=== PATIENT | male | born 1960 | race Caucasian/White ===

== ENCOUNTER 2019-10-15 16:50 | Outpatient (CLI) | payer OTHER, SELFPAY ==
--- NOTE | ~2019-10-15 | XR_ITS ---
EXAMINATION: XR foot LT 2V, XR ankle LT 2V DATE: 10/15/2019 17:34 INDICATION: Left foot and ankle pain and swelling TECHNIQUE: 1. Anteroposterior and lateral view of the left ankle were obtained. 2. Dorsoplantar and lateral views of the left foot were obtained. COMPARISON: None. FINDINGS: Alignment of the foot and ankle is normal. No fracture or osteochondral lesion. Mild osteoarthritis a t the first metatarsophalangeal joint. Remaining joint spaces are normal. No cortical erosions or per iosteal reaction. No suspicious lytic or blastic bone lesions. Moderate-sized plantar calcaneal spur. No ankle joint effusion. Soft tissue nodule lateral to the mid fifth metatarsal which measure proxim al 1.5 cm in length. IMPRESSION: 1. No acute osseous abnormality. 2. Indeterminate 1.5 cm soft tissue nodule along the lateral margin of the forefoot. Reviewed, dictated and finalized at location A. PER IMPRESSION: 1. No acute osseous abnormality. 2. Indeterminate 1.5 cm soft tissue nodule along the lateral margin of the fore foot.
[2019-10-15 17:15] LABS: Basophils Absolute Auto 0.03 K/mm3 (0.00-0.10); Basophils Percent Auto 0.7 % (0.0-1.0); Eosinophils Absolute Auto 0.04 K/mm3 (0.02-0.50); Eosinophils Percent Auto 0.9 % (1.0-6.0); Hematocrit 37.4 % (40.0-54.0); Hemoglobin 12.9 g/dL (14.0-18.0); Immature Granulocyte Absolute 0.05 K/mm3 (0.00-0.00); Immature Granulocyte Percent A 1.1 % (0.0-0.0); Immature Platelet Fraction Pct 1.7 % (1.0-7.0); Lymphocytes Absolute Auto 1.44 K/mm3 (1.10-4.50); Lymphocytes Percent Auto 32.2 % (18.0-42.0); Mean Corpuscular HGB Conc 34.5 g/dL (32.0-36.0); Mean Corpuscular Hemoglobin 30.9 pg (27.0-31.0); Mean Corpuscular Volume 89.7 fL (78.0-102.0); Mean Platelet Volume 9.7 fl (8.7-11.0); Monocytes Absolute Auto 0.55 K/mm3 (0.10-0.90); Monocytes Percent Auto 12.3 % (2.0-11.0); Neutrophils Absolute Auto 2.4 K/mm3 (1.7-7.2); Neutrophils Percent Auto 52.8 % (50.0-70.0); Platelet Count Result 135 K/mm3 (150-420); Red Blood Count 4.17 M/mm3 (4.70-6.10); Red Cell Distribution Width 16.5 % (11.6-14.4); White Blood Count 4.5 K/mm3 (4.8-10.8)
[2019-10-15 17:30] LABS: Anion Gap 13.8 mmol/L (7-16); Blood Urea Nitrogen 17 mg/dL (7-18); CRP 1.4 mg/dL (0.0-0.9); Calcium 8.8 mg/dL (8.5-10.1); Carbon Dioxide 26 mmol/L (21-32); Chloride 102 mmol/L (98-108); Estimated Glomerular Filt Rate > 60; Glucose 92 mg/dL (70-99); Osmolality Calculated 287 mOsm/kg (285-295); Potassium 3.8 mmol/L (3.5-5.1); Sodium 138 mmol/L (136-145)
[2019-10-15 18:29] LABS: Erythrocyte Sedimentation Rate 46 mm/hr (0-20)
== END 2019-10-15 16:51 | disposition home or self-care (01) ==
LOC: CHSLAB 16:52
PROVIDERS: PCP Internal Medicine; Visit Provider Internal Medicine
DX: M25.572 Pain in left ankle and joints of left foot (principal); M79.672 Pain in left foot; M25.472 Effusion, left ankle
CPT/HCPCS: 36415; 73600; 73620; 80048; 84550; 85025; 85055; 85652; 86140

== ENCOUNTER 2019-11-18 06:25 | Day surgery (SDC) | payer OTHER, SELFPAY | END 2019-11-18 08:25 | disposition home or self-care (01) | PROVIDERS: PCP Internal Medicine; Visit Provider Surgery | DX: Z12.11 Encounter for screening for malignant neoplasm of colon (principal); Z85.048 Personal history of other malignant neoplasm of rectum, rectosigmoid junction, and anus; K63.5 Polyp of colon | CPT/HCPCS: 45384; 812; 88305; J2704; J7120 ==

== ENCOUNTER 2019-12-21 09:32 | Outpatient (CLI) | payer OTHER, SELFPAY ==
--- NOTE | ~2019-12-21 | CT_ITS ---
EXAMINATION: CT abdomen pelvis w con INDICATION: Rectal cancer TECHNIQUE: Computed tomographic images of the abdomen and pelvis were obtained after the administrati on of 100 cc of Omnipaque 350 intravenous contrast. The dose-length product (DLP) was 494.43 mGy-cm. Automated exposure control and iterative reconstruction technique were employed. COMPARISON: 05/12/2019 FINDINGS: The lung bases are clear. The heart size is normal. There is a 5 mm cyst of the liver. The spleen,, gallbladder, and adrenal glands are normal. A punctate calcification of the pancreas likely reflects prior pancreatitis. The adrenal glands and kidneys are unremarkable. There is calcified athe rosclerosis of the aorta and many of the other arteries. No pathologically enlarged abdominal or pelv ic lymph nodes are identified. There has been interval resection of the previously described rectal m ass. No definite persistent wall thickening is identified although the bowel is nondistended just pro ximal to the anastomosis. There is no free intraperitoneal gas or evidence of bowel obstruction. Ther e are fat-containing inguinal hernias, right greater than left. There is moderate lumbar spondylosis. IMPRESSION: 1. Interval rectal mass resection without evidence of metastatic disease. Reviewed, dictated and finalized at location B.
== END 2019-12-21 09:33 | disposition home or self-care (01) ==
PROVIDERS: PCP Internal Medicine; Visit Provider Internal Medicine Hematology & Oncology
DX: C20 Malignant neoplasm of rectum (principal); Z98.890 Other specified postprocedural states
CPT/HCPCS: 74177; Q9967

== ENCOUNTER 2020-06-07 17:03 | Outpatient (CLI) | payer OTHER, SELFPAY ==
--- NOTE | ~2020-06-07 | XR_ITS ---
EXAMINATION: XR chest 2V DATE: 06/07/2020 17:24 INDICATION: COPD. Dyspnea. TECHNIQUE: frontal and lateral views of the chest were obtained. COMPARISON: Chest radiograph dated 06/22/2019 FINDINGS: Right internal jugular central venous port catheter with distal tip at the caudal superior vena cava. The lungs remain clear with no focal airspace opacities, pulmonary edema, pleural effusion or pneumo thorax. The cardiomediastinal silhouette is normal. Visualized bones and soft tissues are unremarkabl e. IMPRESSION: 1. No acute cardiopulmonary disease. Reviewed, dictated and finalized at location A.
== END 2020-06-07 17:04 | disposition home or self-care (01) ==
LOC: CHSIMG 17:05
PROVIDERS: PCP Internal Medicine; Visit Provider Internal Medicine
DX: J44.9 Chronic obstructive pulmonary disease, unspecified (principal)
CPT/HCPCS: 71046

== ENCOUNTER 2020-12-13 13:07 | Outpatient (CLI) | payer OTHER, SELFPAY ==
--- NOTE | ~2020-12-13 | CT_ITS ---
EXAMINATION: CT abdomen pelvis w con INDICATION: Rectal cancer TECHNIQUE: Computed tomographic images of the abdomen and pelvis were obtained after the administrati on of 100 cc of Omnipaque 350 intravenous contrast. The dose-length product (DLP) was 519.57 mGy-cm. Automated exposure control and iterative reconstruction technique were employed. COMPARISON: 12/21/2019 FINDINGS: The lung bases are clear. The heart size is normal. There is a stable 5 mm cyst of the othe rwise normal liver. The spleen, gallbladder, and adrenal glands are normal. The kidneys are unremarka ble. A punctate calcification in the body of the pancreas likely reflects prior pancreatitis. There i s calcified atherosclerosis of the aorta and many of the other arteries. No pathologically enlarged a bdominal or pelvic lymph nodes are identified. There is no free intraperitoneal gas or evidence of henry wel obstruction. Surgical changes are noted in the rectum. There is moderate lumbar spondylosis. Fat- containing inguinal hernias are again noted. The appendix is normal. IMPRESSION: 1. No evidence of metastatic disease. Reviewed, dictated and finalized at location A.
[2020-12-13 14:01] LABS: Estimated Glomerular Filt Rate > 60
== END 2020-12-13 13:08 | disposition home or self-care (01) ==
PROVIDERS: PCP Internal Medicine; Visit Provider Internal Medicine Hematology & Oncology
DX: C20 Malignant neoplasm of rectum (principal)
CPT/HCPCS: 36415; 74177; 80053; 82378; 85025; Q9967

== ENCOUNTER 2021-11-22 02:55 | Day surgery (SDC) | payer MEDICARE, OTHER, SELFPAY ==
[2021-11-15 15:43] VITALS: BMI 29.9
--- NOTE | 2021-11-15 16:06 | PC.NURSE ---
Report to the Outpatient Waiting Room, entrance under the green pavilion located off [facility], at time 1130_ on date11/22/21. OR Time: 1330. - You and your visitor will be asked a series of questions to screen for COVID 19 for your protection. - A mask is required within the hospital. Preoperative COVID Testing Requirements: No COVID Test needed if: (proof is required; if not received patient will have Rapid Test prior to entry) - Patient has received COVID Vaccine at least 14 days prior to procedure date or - Patient has positive COVID test result within last 90 days of surgery date. COVID Test needed if above criteria is not met If not COVID vaccinated a COVID test must be conducted within 72 hours of surgery and patient is asked to isolate self from time of testing until procedure. You will go to the [facility] for your COVID testing. The [facility] Testing site is located at the corner of [address] [facility]. You will only be called if COVID results are positive and your surgeon may reschedule your elective surgery date. Patients may have clear liquids (water, carbonated beverages, clear teas, apple juice) until 3 hours prior to surgery with a maximum of 20 ounces. - No food from midnight until time of surgery - Infants may have breast milk until 4 hours before surgery, formula 6 hours prior to surgery. - Children will be allowed to drink immediately following surgery. If applicable, please bring a bottle or sippy cup to assist with drinking. Juice, water, soda, and popsicles are readily available. For infants on formula, please bring formula the day of surgery. Pacifiers are allowed. Take the following medications with a SIP of water the morning of surgery:n/a Medications to discontinue per physician none Date to take last dose Please no make-up, nail tunisian, hairspray, perfume, deodorant, or body powder the day of surgery. No jewelry (including any body piercings) or valuables the day of surgery, leave them at home. Please take a shower or bath the night before, or the morning of, surgery with an antibacterial soap. Wear comfortable, loose fitting clothing. Children are encouraged to wear pajamas. - Jewelry must be removed prior to entering the operating room. Rings and piercings that are not removed may be cut off. - The hospital will not accept responsibility for valuables. - Please leave all valuables, including medications, at home the day of surgery. If you are going home after surgery, a licensed dray driver must drive you home. - NO public transportation without another adult. - We recommend that an adult stay with you for 24 hours following discharge. - We also recommend that you do not drive, make important decision, drink alcoholic beverages, or take any drugs that were not prescribed by your health care provider for at least 24 hours after your discharge time. For Pediatric surgeries, we recommend two adults accompany the child home (only one inside the building at this time). One visitor will be allowed to accompany the patient into the hospital. Patients visitor will be instructed to remain with patient at all times or leave the building. We will allow the visitor to come back to the postoperative area when patient is ready. Follow any additional instructions given to you from your surgeon. Telephone instructions given to Sd Munoz and asked if any additional questions and then verbalized understanding. Patient advised to call surgeon office or pre surgery nurse liaison [phone] if any additional questions.
[2021-11-22 11:40] VITALS: BP 127/75; PULSE 75; RESP 18; TEMP 36.8; O2SAT 98
[2021-11-22] MEDS: LACTATED RINGERS 1,000 ML 30 ML IV CONT (12:07)
--- NOTE | 2021-11-22 12:11 | PM.IMHP ---
H&P: HPI History of Present Illness Date/Time: 11/22/21 12:11 Pt is a 61 y/o M s/p LAR and adjuvant chemotx for rectal cancer. Pt had RIJ port placed in 06/26 for chemo access. Pt reports no issues c port but hasn't had use in quite a while. Pt here for removal. Chief Complaint: rectal cancer Review of Systems Review of Systems: All systems reviewed & are unremarkable except as noted in HPI and below PMFSH Past Medical History Medical History Port-A-Cath in place Rectal cancer Family History Family History Sibling Family history of multiple sclerosis Hypertension Father Hypertension Family history of cardiovascular disease Cerebrovascular accident Other Carcinoma of colon Social History Social History Smoking packs per day: 1 Smoking cigarettes per day: 20.0 Years smoked: 40 Smoking pack-years: 40.00 Smoking status: Former smoker Tobacco type: cigarettes Smoking end date: 09/08/13 Alcohol intake: current Substance use: current Substance use type: marijuana and prescription drug Last use: 11/14/21 Living arrangements: alone Spiritual care concerns: No Meds Home Medications and Allergies Home Medications Medication Instructions Recorded Confirmed Type amlodipine 5 mg PO DAILY 11/15/21 11/22/21 History atorvastatin 20 mg PO DAILY 11/15/21 11/22/21 History Allergies Allergy/AdvReac Type Severity Reaction Status Date / Time No Known Allergies Allergy Verified 11/22/21 11:46 Vital Signs Vital Signs - 24 hr 11/22/21 11:40 Temperature 36.8 C Pulse Rate 75 Respiratory Rate 18 Blood Pressure 127/75 Pulse Oximetry 98 Exam Const: General: cooperative, comfortable and no acute distress Chest: Chest palpation & inspection: normal inspection of the chest Other: RIJ port - C/D/I Resp: Effort & Inspection: normal respiratory effort Auscultation: clear to auscultation bilaterally Cardio: Rate: regular rate Rhythm: regular rhythm GI: Inspection: normal to inspection GI Palp: Yes Soft to palpation Assessment and Plan Assessment and plan (1) Rectal cancer: Code(s): C20 - Malignant neoplasm of rectum Status: Chronic Assessment and Plan: s/p adjuvant tx, here for VAD removal
--- NOTE | 2021-11-22 12:14 | WPDHPUPDATE1 ---
History and Physical Update Update Date/Time: 11/22/21 12:14 History and Physical has been reviewed, including an updated exam of the patient. There are NO changes in the patient's condition. Risks, benefits, and alternatives have been discussed and questions answered. Patient agrees to proceed with procedure.
--- NOTE | 2021-11-22 13:14 | P.PNAN_ITS ---
Anes - Initial Pre Proc Eval Procedure: Operation Date: 11/22/21 13:30 Proposed Procedures p Removal of Valentin Cath - Tammy Davis MD Date/Time: 11/22/21 13:14 Surgeon: Tammy Davis MD Pre Op Diagnosis: rectal cancer Patient Data Age: 61 Gender: M Height: 1.68 m Weight: 84.2 kg Last Vital Signs Temp 36.8 C 11/22/21 11:40 Pulse 75 11/22/21 11:40 Resp 18 11/22/21 11:40 BP 127/75 11/22/21 11:40 Pulse Ox 98 11/22/21 11:40 Allergies Allergy/AdvReac Type Severity Reaction Status Date / Time No Known Allergies Allergy Verified 11/22/21 11:46 Home Medications Medication Instructions Recorded Confirmed Type amlodipine 5 mg PO DAILY 11/15/21 11/22/21 History atorvastatin 20 mg PO DAILY 11/15/21 11/22/21 History Patient hx anesthesia problems: none Family hx anesthesia problems: none Results Review: All pre-operative results and documents have been reviewed as part of the pre-operative evaluation. [facility] Past Medical History Medical History (Updated 11/22/21 @ 13:15 by Mayito Adkins MD) COPD (chronic obstructive pulmonary disease) HTN (hypertension) Hyperlipidemia Obesity Port-A-Cath in place Rectal cancer Surgical History Surgical History (Updated 11/22/21 @ 13:14 by Mayito Adkins MD) H/O colectomy Family History Family History Sibling Family history of multiple sclerosis Hypertension Father Hypertension Family history of cardiovascular disease Cerebrovascular accident Other Carcinoma of colon Social History Social History Smoking packs per day: 1 Smoking cigarettes per day: 20.0 Years smoked: 40 Smoking pack-years: 40.00 Smoking status: Former smoker Tobacco type: cigarettes Smoking end date: 09/08/13 Alcohol intake: current Substance use: current Substance use type: marijuana and prescription drug Last use: 11/14/21 Living arrangements: alone Spiritual care concerns: No Anes - Eval Final PreProcedure Day of Procedure 11/22/21 13:14 Patient weight: obese Heart: regular rate and rhythm Lungs: clear to auscultation Airway: Mallampati scale class II and special considerations poor dentition Neurological: alert and oriented Last oral intake: >/= 8 hours ASA classification: III Emergent: no Anesthetic plan: proceed Anesthesia type and monitoring: general GIVS and standard monitoring Results Review: All pre-operative results and documents have been reviewed as part of the pre-operative evaluation. Informed Consent: The patient's anesthetic plan and its attendant risks and benefits were discussed with the patient/family/POA. Questions were solicited and answers provided to the satisfaction of the patient/family/POA.
[2021-11-22] MEDS: ceFAZolin 2 GM/D5W 50 ML 2 GM/50 ML BAG IVPB (13:30)
[2021-11-22] MEDS: BUPIVACAINE/EPINEPHRINE 0.25% 10 ML VIAL 20 ML INFILTRATE (13:30)
--- NOTE | 2021-11-22 14:00 | P.OP_ITS ---
Procedure Note - Detailed Date of Procedure 11/22/21 Pre-op Diagnosis rectal cancer s/p adjuvant chemotherapy Post-op Diagnosis Same Procedure Performed removal right chest VAD Surgeon Tammy Davis MD Anesthesia MAC and Local Indications 61 y/o M s/p adjuvant chemotherapy for rectal cancer now need VAD removal Findings RIJ VAD removed in full Description of Procedure The patient was taken to the operating room and placed in the supine position. The patient was then prepped and draped in the normal sterile fashion. A time- out was then done to verify the patient's identity, as well as the procedure being performed. I began by localizing the area of the previously placed port in the right chest. After the area was adequately anesthetized, I made an incision through the previous incision to gain access to the port in the subcutaneous tissue. I was then able to identify the port and using dissection with the Bovie cautery, I was able to free the reservoir from the subcutaneous pocket. The reservoir was being held in by 2 sutures and these were subsequently cut. I was then able to remove the reservoir from the pocket. I then removed the catheter from the right internal jugular vein in full. I then held pressure at the level the right internal jugular vein for approximately 5 minutes. Hemostasis was noted and I irrigated the pocket. I then closed the subcutaneous tissue with 3-0 Vicryl suture. The skin was closed with 4-0 Monocryl subcuticular suture. Dermabond was placed on the wound. The patient tolerated the procedure well and was alert and awake in the operating room postoperative. The patient will be sent to the recovery room in stable condition. Estimated Blood Loss 5 Drains No Packing No Pathology None sent Complications No immediate complications Condition Stable Disposition PACU
[2021-11-22 14:02] VITALS: BP 124/69; PULSE 76; RESP 12; O2SAT 95
[2021-11-22 14:30] VITALS: BP 137/77; PULSE 66; RESP 12; O2SAT 94
[2021-11-22 14:45] VITALS: BP 131/72; PULSE 64; RESP 12
== END 2021-11-22 14:58 | disposition home or self-care (01) ==
PROVIDERS: PCP Internal Medicine; Visit Provider Surgery
PROC: (CPT 36589; principal; 2021-11-22 13:30)
DX: Z45.2 Encounter for adjustment and management of vascular access device (principal); Z85.048 Personal history of other malignant neoplasm of rectum, rectosigmoid junction, and anus; Z92.21 Personal history of antineoplastic chemotherapy; F12.90 Cannabis use, unspecified, uncomplicated; I10 Essential (primary) hypertension; E78.5 Hyperlipidemia, unspecified; J44.9 Chronic obstructive pulmonary disease, unspecified; E66.9 Obesity, unspecified; Z68.30 Body mass index [BMI] 30.0-30.9, adult; Z90.49 Acquired absence of other specified parts of digestive tract; Z87.891 Personal history of nicotine dependence
CPT/HCPCS: 36590; J0690; J2250; J2405; J2704; J3010; J7120

== ENCOUNTER 2022-04-12 09:05 | Outpatient (CLI) | payer MEDICARE, OTHER, SELFPAY ==
--- NOTE | ~2022-04-12 | CT_ITS ---
EXAMINATION: CT abdomen pelvis w con DATE: 04/12/2022 09:47 INDICATION: Rectal cancer restaging TECHNIQUE: Computed tomography (CT) of the abdomen and pelvis was performed with 100 CC Omnipaque 350 intravenous contrast. Automated exposure control and iterative reconstruction technique were employe d. Exam dose: 754.13 mGy-cm total exam DLP. COMPARISON: 12/13/2020 CT abdomen pelvis FINDINGS: The lung bases are clear. Normal heart size. No pericardial or pleural effusion. Diffuse hepatic steatosis with minimal sparing around the gallbladder. No hepatic space-occupying mas s lesion. No gallbladder wall thickening or pericholecystic fluid or fat stranding. No bile duct or p ancreatic duct dilatation. No pancreatic mass lesion. One or 2 pancreatic calcifications suggest mild chronic pancreatitis. Normal morphology of the adrenal glands. Approximately 4.6 mm right renal cyst. No other urinary tract mass lesion or urinary tract calculus o r hydroureteronephrosis. Mild prostate enlargement and calcification. There is atherosclerotic calcification and plaque formation of the abdominal aorta but no aneurysm. N o intraperitoneal or retroperitoneal or pelvic mass lesion or adenopathy or ascites. Normal appendix. Small bilateral fat-containing inguinal hernias. Very small fat-containing umbilical hernia. No suspicious osteolytic or osteoblastic lesions. IMPRESSION: No recurrent or metastatic rectal cancer is evident Hepatic steatosis Mild chronic pancreatitis Normal appendix Reviewed, dictated and finalized at Location A. Reviewed, dictated and finalized at location B.
[2022-04-12 09:29] LABS: Estimated Glomerular Filt Rate > 60
== END 2022-04-12 09:06 | disposition home or self-care (01) ==
PROVIDERS: PCP Internal Medicine; Visit Provider Internal Medicine Hematology & Oncology
DX: C20 Malignant neoplasm of rectum (principal); K76.0 Fatty (change of) liver, not elsewhere classified; K86.1 Other chronic pancreatitis
CPT/HCPCS: 36415; 74177; 80053; 82378; 85025; Q9967

== ENCOUNTER 2022-10-31 10:02 | Outpatient (CLI) | payer MEDICARE, SELFPAY ==
--- NOTE | ~2022-10-31 | CT_ITS ---
CT Abdomen and Pelvis with contrast. History: Rectal cancer. Spiral CT of the abdomen and pelvis was performed after the administration of intravenous contrast. 1 00 cc of Omnipaque 350 was administered intravenously without complication. Dose reduction technique was used on this scan by utilizing automated exposure control and iterative reconstruction technique. The dose-length product (DLP) was 651.79 mGy-cm. COMPARISON: 04/12/2022 Findings: Scans through the lung bases demonstrate mild atelectatic change. There is a 4 mm hypodensity at the anterior margin of liver, too small to accurately characterize (ax ial image 47). The spleen, pancreas, gallbladder, adrenals and kidneys are within normal limits. No evidence of aortic aneurysm. No lymphadenopathy is seen. There is no evidence of bowel obstruction. There is no evidence to suggest acute appendicitis or dive rticulitis. Distal rectal anastomosis noted. Images through the pelvis were performed. Urinary bladder unremarkable. Prostate gland and seminal ve sicles are unremarkable. No ascites is seen. Impression: 4 mm hypodensity in the anterior liver, too small to accurately characterize. Follow-up exam advised. No other significant findings. Reviewed, dictated and finalized at location . D WELFARE ASSISTANT Impression: 4 mm hypodensity in the anterior liver, too small to accurately characterize. F ollow-up exam advised. No other significant findings.
== END 2022-10-31 10:03 | disposition home or self-care (01) ==
PROVIDERS: PCP Internal Medicine; Visit Provider Internal Medicine Hematology & Oncology
DX: C20 Malignant neoplasm of rectum (principal); R93.2 Abnormal findings on diagnostic imaging of liver and biliary tract
CPT/HCPCS: 74177; Q9967

== ENCOUNTER 2022-11-19 00:17 | Day surgery (SDC) | payer MEDICARE, SELFPAY ==
[2022-11-06 15:03] VITALS: BMI 28.4
[2022-11-19 11:12] VITALS: BP 142/80; PULSE 66; RESP 18; TEMP 36.4; O2SAT 97
[2022-11-19] MEDS: LACTATED RINGERS 1,000 ML 150 ML IV CONT (11:36)
--- NOTE | 2022-11-19 11:51 | P.PNAN_ITS ---
Anes - Initial Pre Proc Eval Procedure: Operation Date: 11/19/22 12:30 Proposed Procedures p Colonoscopy - Adrian Osuna MD Date/Time: 11/19/22 11:51 Surgeon: Adrian Osuna MD Pre Op Diagnosis: Rectal CA Patient Data Age: 62 Gender: M Height: 1.68 m Weight: 79.1 kg Last Vital Signs Temp 97.6 F 11/19/22 11:12 Pulse 66 11/19/22 11:12 Resp 18 11/19/22 11:12 BP 142/80 H 11/19/22 11:12 Pulse Ox 97 11/19/22 11:12 O2 Del Method Room Air 11/19/22 11:12 Allergies Allergy/AdvReac Type Severity Reaction Status Date / Time No Known Allergies Allergy Verified 11/19/22 11:11 Home Medications Medication Instructions Recorded Confirmed Type amlodipine 5 mg tablet 5 mg PO DAILY 11/15/21 11/06/22 History atorvastatin 20 mg tablet 20 mg PO DAILY 11/15/21 11/06/22 History Patient hx anesthesia problems: none Family hx anesthesia problems: none Results Review: All pre-operative results and documents have been reviewed as part of the pre- operative evaluation. [facility] Past Medical History Medical History (Updated 11/22/21 @ 13:15 by Mayito Adkins MD) COPD (chronic obstructive pulmonary disease) HTN (hypertension) Hyperlipidemia Obesity Port-A-Cath in place Rectal cancer Surgical History Surgical History (Updated 11/22/21 @ 13:14 by Mayito Adkins MD) H/O colectomy Family History Family History Sibling Family history of multiple sclerosis Hypertension Father Hypertension Family history of cardiovascular disease Cerebrovascular accident Other Carcinoma of colon Social History Social History Smoking packs per day: 1 Smoking cigarettes per day: 20.0 Years smoked: 40 Smoking pack-years: 40.00 Smoking status: Former smoker Tobacco type: cigarettes Smoking end date: 09/08/13 Alcohol intake: current Substance use: current Substance use type: marijuana and prescription drug Last use: 11/14/21 Living arrangements: alone Spiritual care concerns: No Anes - Eval Final PreProcedure Day of Procedure 11/19/22 11:51 Patient weight: normal Heart: regular rate and rhythm Lungs: clear to auscultation Airway: Mallampati scale class II Neurological: alert and oriented Last oral intake: >/= 8 hours ASA classification: III Emergent: no Anesthetic plan: proceed Anesthesia type and monitoring: general GIVS and standard monitoring Results Review: All pre-operative results and documents have been reviewed as part of the pre- operative evaluation. Informed Consent: The patient's anesthetic plan and its attendant risks and benefits were discussed with the patient/family/POA. Questions were solicited and answers provided to the satisfaction of the patient/family/POA.
--- NOTE | 2022-11-19 12:17 | PM.HPGS ---
History of Present Illness History of Present Illness Consent: Risks, benefits, and alternatives have been discussed and questions answered. Patient agrees to proceed with procedure. Chief complaint: Rectal CA Narrative: Sd Munoz is a 62 year old male diagnosed with rectal cancer 2019 s/p surgery, XRT and chemotherapy Review of Systems Constitutional: Constitutional: Denies headache(s) and Denies weakness Eyes: Eyes: Denies blurry vision ENT: Reports Normal hearing present, Denies headache(s) and Denies neck pain Cardiovascular: Cardiovascular: Denies chest pain and Denies dyspnea Respiratory: Respiratory: Denies dyspnea Gastrointestinal: Gastrointestinal: Reports no additional gastrointestinal complaints Genitourinary: Genitourinary: Denies dysuria Musculoskeletal: Musculoskeletal: Denies neck pain Integumentary/Breasts: Skin/Breast: Denies dry skin Neurologic: Reports Normal hearing present, Denies headache(s) and Denies weakness Psychiatric: Psychiatric: Denies anxiety Endocrine: Endocrine: Denies change in body appearance Hematologic/Lymphatic: Hematologic/Lymphatic: Denies easy bleeding Allergic/Immunologic: Allergic/Immunologic: Denies urticaria PMFSH Past Medical History Medical History (Updated 11/22/21 @ 13:15 by Mayito Adkins MD) COPD (chronic obstructive pulmonary disease) HTN (hypertension) Hyperlipidemia Obesity Port-A-Cath in place Rectal cancer Surgical History Surgical History (Updated 11/22/21 @ 13:14 by Mayito Adkins MD) H/O colectomy Family History Family History Sibling Family history of multiple sclerosis Hypertension Father Hypertension Family history of cardiovascular disease Cerebrovascular accident Other Carcinoma of colon Social History Social History Smoking packs per day: 1 Smoking cigarettes per day: 20.0 Years smoked: 40 Smoking pack-years: 40.00 Smoking status: Former smoker Tobacco type: cigarettes Smoking end date: 09/08/13 Alcohol intake: current Substance use: current Substance use type: marijuana and prescription drug Last use: 11/14/21 Living arrangements: alone Spiritual care concerns: No Meds Home Medications and Allergies Home Medications Medication Instructions Recorded Confirmed Type amlodipine 5 mg tablet 5 mg PO DAILY 11/15/21 11/06/22 History atorvastatin 20 mg tablet 20 mg PO DAILY 11/15/21 11/06/22 History Allergies Allergy/AdvReac Type Severity Reaction Status Date / Time No Known Allergies Allergy Verified 11/19/22 11:11 Vital Signs Vital Signs - 24 hr 11/19/22 11:12 Temperature 97.6 F Pulse Rate 66 Respiratory Rate 18 Blood Pressure 142/80 H Pulse Oximetry 97 Oxygen Delivery Room Air Exam Const: General: comfortable and no acute distress HENMT: Face/Nose/Sinus: Normal nares present Eyes: General: appearance normal, both eyes and all related structures Neck: Neck: no JVD Resp: Auscultation: clear to auscultation bilaterally Cardio: Rate: regular rate Rhythm: regular rhythm GI: Inspection: non-distended GI Palp: Yes Soft to palpation Skin: General skin exam: normal color Neuro: General: gait normal Speech: normal speech Extrem: General: normal to inspection Psych: Mental Status: mental status grossly normal Assessment and Plan Assessment and plan (1) Rectal cancer: Code(s): C20 - Malignant neoplasm of rectum Status: Chronic Assessment and Plan: colonoscopy
[2022-11-19 12:42] VITALS: BP 107/65; PULSE 61; RESP 16; O2SAT 97
[2022-11-19 12:52] VITALS: BP 136/74; PULSE 56; RESP 13; O2SAT 99
[2022-11-19 13:02] VITALS: BP 160/84; PULSE 53; RESP 13; O2SAT 100
== END 2022-11-19 13:14 | disposition home or self-care (01) ==
PROVIDERS: PCP Internal Medicine; Visit Provider Internal Medicine Gastroenterology
PROC: 0DJD8ZZ Inspection of Lower Intestinal Tract, Via Natural or Artificial Opening Endoscopic (ICD-10-PCS; CPT 45378; principal; 2022-11-19 12:30)
DX: Z08 Encounter for follow-up examination after completed treatment for malignant neoplasm (principal); D12.2 Benign neoplasm of ascending colon; K64.8 Other hemorrhoids; J44.9 Chronic obstructive pulmonary disease, unspecified; I10 Essential (primary) hypertension; E78.5 Hyperlipidemia, unspecified; E66.9 Obesity, unspecified; Z90.49 Acquired absence of other specified parts of digestive tract; Z87.891 Personal history of nicotine dependence; Z85.048 Personal history of other malignant neoplasm of rectum, rectosigmoid junction, and anus
CPT/HCPCS: 45385; 88305; J2704; J7120

== ENCOUNTER 2022-12-09 10:22 | Outpatient (CLI) | payer MEDICARE, SELFPAY ==
--- NOTE | ~2022-12-09 | CT_ITS ---
EXAMINATION: CT lung screening DATE: 12/09/2022 10:40 INDICATION: HX OF NICOTINE DEPENDENCE TECHNIQUE: Computed tomography (CT) of the chest was performed without intravenous contrast. Addition al 3D reconstructions utilizing coronal maximum intensity projection (MIP) were performed. Automated exposure control and iterative reconstruction technique were employed. The dose-length product was 11 3.19 mGy-cm. COMPARISON: Chest CT dated 02/10/2019 and 10/02/2018 FINDINGS: New 8 x 6 mm irregular nodule branching pattern in the left upper lobe along the medial margin of an otherwise unchanged 1-1.5 cm ill-defined subpleural region of groundglass opacity in the anterior seg ment of the left upper lobe. A couple small flat intrafissural lymph nodes along the right major fiss ure measuring 4 mm maximal diameters. Small pneumatocele in the right middle lobe. No pneumonia, pulm onary edema or pleural effusion. Heart size is normal. Atherosclerotic coronary artery calcification. Thoracic aorta is normal in caliber. No pathologically enlarged thoracic lymphadenopathy. Diffuse he patic steatosis. Mild S-shaped scoliosis of the thoracic spine with mild spondylosis. Severe spondylo sis at C6-C7. IMPRESSION: 1. Lung-RADS category 4A: (Suspicious, 5-15% chance of malignancy). Recommend 3 month follow-up low-d ose noncontrast chest CT. Reviewed, dictated and finalized at location A. IMPRESSION: 1. Lung-RADS category 4A: (Suspicious, 5-15% chance of malignancy). Recommend 3 month follow-up low-dose noncontrast chest CT.
== END 2022-12-09 10:23 | disposition home or self-care (01) ==
LOC: CHSIMG 10:25
PROVIDERS: PCP Internal Medicine; Visit Provider Internal Medicine
DX: Z12.2 Encounter for screening for malignant neoplasm of respiratory organs (principal); Z87.891 Personal history of nicotine dependence; R91.8 Other nonspecific abnormal finding of lung field
CPT/HCPCS: 71271

== ENCOUNTER 2023-04-10 09:50 | Outpatient (CLI) | payer MEDICARE, SELFPAY ==
--- NOTE | ~2023-04-10 | CT_ITS ---
Clinical Indication: Lung mass CT Scan of the Chest with Contrast: Technique: Contiguous sections were acquired throughout the chest after intravenous administration of 75 cc of Omnipaque 350. Dose reduction technique was used on this scan by utilizing automated exposu re control and iterative reconstruction technique. The dose-length product (DLP) was 305.85 mGy-cm. COMPARISON: 12/09/2022, 02/10/2019 Findings: There is no evidence of any significant mediastinal, hilar or axillary lymphadenopathy. There is no f illing defect in the pulmonary arterial tree to suggest pulmonary embolus. There is no evidence of ao rtic dissection or aneurysm. There is no evidence of pleural or pericardial effusion. Stable left upper lobe groundglass opacity with possible focal small solid component (axial images 38 -42). No new pulmonary abnormality seen. Images through the upper abdomen reveal no abnormalities. Impression: Stable small groundglass opacity in the left upper lobe with possible tiny small solid component. Reviewed, dictated and finalized at location . Impression: Stable small groundglass opacity in the left upper lobe with possible tiny smal l solid component.
== END 2023-04-10 09:51 | disposition home or self-care (01) ==
PROVIDERS: PCP Internal Medicine; Visit Provider Internal Medicine Hematology & Oncology
DX: R91.8 Other nonspecific abnormal finding of lung field (principal)
CPT/HCPCS: 71260; Q9967

== ENCOUNTER 2023-10-31 13:19 | Outpatient (CLI) | payer MEDICARE, SELFPAY ==
--- NOTE | ~2023-10-31 | CT_ITS ---
CT of the Abdomen and Pelvis: Indication: Rectal cancer Technique: 2.5 mm axial scans were obtained through the abdomen and pelvis following intravenous adm inistration of 100 cc of Omnipaque 350. Dose reduction technique was used on this scan by utilizing a utomated exposure control and iterative reconstruction technique. The dose-length product (DLP) was 5 32.38 mGy-cm. COMPARISON: 10/31/2022 Findings: Scans through the lung bases are unremarkable. Stable tiny hypodensity in the anterior liver, too small to accurately characterize (axial image 50). The spleen, pancreas, gallbladder, adrenals and kidneys are within normal limits. There are atherosc lerotic calcifications of the aorta. No lymphadenopathy. No bowel obstruction or bowel wall thickening. There is no evidence to suggest acute appendicitis. Images through the pelvis were performed. Urinary bladder unremarkable. No pelvic mass seen. No ascit es. Impression: No evidence for active malignancy or metastatic disease. Stable tiny hypodensity in the liver, too small to characterize accurately. Given stability, this is most likely benign. Reviewed, dictated and finalized at location . TECHNICIAN Impression: No evidence for active malignancy or metastatic disease. Stable tiny hypodensity in the liver, too small to characterize accurately. Giv en stability, this is most likely benign.
== END 2023-10-31 13:20 | disposition home or self-care (01) ==
PROVIDERS: PCP Internal Medicine; Visit Provider Internal Medicine Hematology & Oncology
DX: C20 Malignant neoplasm of rectum (principal)
CPT/HCPCS: 74177; Q9967

== ENCOUNTER 2024-04-03 16:36 | Emergency (ER) | payer MEDICARE, SELFPAY ==
[2024-04-03 16:37] VITALS: BP 144/80; PULSE 75; RESP 18; TEMP 36.6; O2SAT 95
--- NOTE | 2024-04-03 16:48 | ED.DENTAL ---
HPI - Dental/Oral General Chief complaint: Dental/Oral Stated complaint: tongue sore Source: patient Mode of arrival: ambulatory Limitations: no limitations History of Present Illness HPI Narrative: 63 years old white male came to the emergency room by private car complaining of painful lesion at the right side of his tongue for over 1 month. Got worse over the last 2 days. He denies any fever, chills, nausea, vomiting, trouble swallowing or breathing. Related Data Home Medications Medication Instructions Recorded Confirmed amlodipine 5 mg tablet 5 mg PO DAILY 11/15/21 04/03/24 atorvastatin 20 mg tablet 20 mg PO DAILY 11/15/21 04/03/24 Allergies Allergy/AdvReac Type Severity Reaction Status Date / Time No Known Allergies Allergy Verified 11/19/22 11:11 Review of Systems Review of Systems: All systems reviewed & are unremarkable except as noted in HPI and below PMFSH Past Medical History Medical History COPD (chronic obstructive pulmonary disease) HTN (hypertension) Hyperlipidemia Obesity Port-A-Cath in place Rectal cancer Surgical History Surgical History H/O colectomy Family History Family History Sibling Family history of multiple sclerosis Hypertension Father Hypertension Family history of cardiovascular disease Cerebrovascular accident Other Carcinoma of colon Social History Social History Smoking packs per day: 1 Smoking cigarettes per day: 20.0 Years smoked: 40 Smoking pack-years: 40.00 Smoking status: Former smoker Tobacco type: cigarettes Smoking end date: 09/08/13 Alcohol intake: current Substance use: current Substance use type: marijuana and prescription drug Last use: 11/14/21 Living arrangements: alone Spiritual care concerns: No Exam Narrative: General appearance: Well-developed, well-nourished Skin: Normal color Head: Normocephalic, nontraumatic Eyes: Clear conjunctiva ENT: Oropharynx normal, ears normal, nose normal , tongue exam showed 2 x 1 and 0.5 cm ulceration on the right side of the tongue. No neck mass, no neck lymphadenopathy. Neck: Supple, nontender Chest and respiratory: Airway patent, no respiratory distress, no accessory muscle use Heart: Regular rate/rhythm Abdomen: Soft, nontender, no organomegaly, quiet bowel sounds Vascular: Normal peripheral pulses, normal capillary refill. Musculoskeletal: Normal range of motion, nontender back Neurologic: Alert and oriented ?3, [employer] is normal as tested, no gross motor deficit Course Vital Signs Vital signs: Vital Signs Temperature 36.6 C 04/03/24 16:37 Pulse Rate 75 04/03/24 16:37 Respiratory Rate 18 04/03/24 16:37 Blood Pressure 144/80 H 04/03/24 16:37 Pulse Oximetry 95 04/03/24 16:37 Oxygen Delivery Room Air 04/03/24 16:37 Temperature 36.6 C 04/03/24 16:37 Pulse Rate 75 04/03/24 16:37 Respiratory Rate 18 04/03/24 16:37 Blood Pressure 144/80 H 04/03/24 16:37 Pulse Oximetry 95 04/03/24 16:37 Oxygen Delivery Room Air 04/03/24 16:37 MDM - Dental/Oral MDM Narrative Medical decision making narrative: Tongue lesion for over 1 month, physical examination showed no lymphadenopathy, no neck or facial mass, showed an ulcer 2 x 1 and 0.5 cm at the right side of the tongue, looks like malignant. Patient was advised to follow-up with ENT or oral maxillary surgeon for biopsy and further evaluation Critical Care Time Critical Care Time Critical Care
== END 2024-04-03 17:13 | disposition home or self-care (01) ==
PROVIDERS: Emergency Provider Emergency Medicine; PCP Internal Medicine
DX: K14.0 Glossitis (principal); J44.9 Chronic obstructive pulmonary disease, unspecified; I10 Essential (primary) hypertension; E78.5 Hyperlipidemia, unspecified; Z87.891 Personal history of nicotine dependence
CPT/HCPCS: 99283

== ENCOUNTER 2024-04-19 14:09 | Outpatient (CLI) | payer MEDICARE, SELFPAY ==
[2024-04-19 14:22] LABS: Basophils Absolute Auto 0.1 K/mm3 (0.0-0.1); Basophils Percent Auto 0.3 % (0.2-1.2); Eosinophils Absolute Auto 0.2 K/mm3 (0-0.3); Eosinophils Percent Auto 0.7 % (0-4.4); Hematocrit 45.9 % (42.0-52.0); Hemoglobin 15.2 g/dL (14.0-18.0); Immature Granulocyte Absolute 0.06 K/mm3 (0.00-0.031); Immature Granulocyte Percent A 0.2 % (0-0.5); Lymphocytes Absolute Auto 22.05 K/mm3 (0.9-3.2); Lymphocytes Percent Auto 77.1 % (18.3-44.2); Mean Corpuscular HGB Conc 33.1 g/dl (32-36); Mean Corpuscular Hemoglobin 29.9 pg (26-34); Mean Corpuscular Volume 90.2 fl (80-100); Mean Platelet Volume 10.7 fl (7.4-10.4); Monocytes Absolute Auto 1.4 K/mm3 (0.1-0.6); Neutrophils Absolute Auto 4.8 K/mm3 (1.3-6.7); Neutrophils Percent Auto 16.7 % (45.5-73.1); Platelet Count Result 188 k/mm3 (150-375); Red Blood Count 5.09 M/mm3 (4.6-6.20); Red Cell Distribution Width 13.2 % (11.5-14.5); White Blood Count 28.6 K/mm3 (4.5-10.0)
[2024-04-19 14:35] LABS: Atypical Lymphocytes Present; Platelet Estimate Adequate (Adequate); Schistocytes None Seen
[2024-04-19 20:05] LABS: Alanine Aminotransferase 19 U/L (6-50); Albumin Level 4.8 g/dL (3.5-5.1); Alkaline Phosphatase 86 U/L (38-126); Anion Gap 10 mmol/L (4-12); Aspartate Amino Transferase 24 U/L (17-59); Bilirubin,Total 0.6 mg/dL (0.2-1.3); Blood Urea Nitrogen 21 mg/dL (9-20); Calcium 9.5 mg/dL (8.4-10.2); Carbon Dioxide 27 mmol/L (22-30); Chloride 99 mmol/L (98-107); Estimated Glomerular Filt Rate > 60; Glucose 84 mg/dL (65-110); Sodium 136 mmol/L (137-145)
== END 2024-04-19 14:10 | disposition home or self-care (01) ==
LOC: ANHLAB 14:11
PROVIDERS: PCP Internal Medicine; Visit Provider Internal Medicine Hematology & Oncology
DX: C20 Malignant neoplasm of rectum (principal)
CPT/HCPCS: 36415; 80053; 82378; 85025

== ENCOUNTER 2024-07-19 10:30 | Outpatient (CLI) | payer MEDICARE, SELFPAY ==
[2024-07-19 10:46] LABS: Basophils Absolute Auto 0.1 K/mm3 (0.0-0.1); Basophils Percent Auto 0.3 % (0.2-1.2); Eosinophils Absolute Auto 0.1 K/mm3 (0-0.3); Eosinophils Percent Auto 0.4 % (0-4.4); Hematocrit 40.9 % (42.0-52.0); Hemoglobin 13.2 g/dL (14.0-18.0); Immature Granulocyte Absolute 0.05 K/mm3 (0.00-0.031); Immature Granulocyte Percent A 0.2 % (0-0.5); Lymphocytes Absolute Auto 17.73 K/mm3 (0.9-3.2); Lymphocytes Percent Auto 75.7 % (18.3-44.2); Mean Corpuscular HGB Conc 32.3 g/dl (32-36); Mean Corpuscular Hemoglobin 28.9 pg (26-34); Mean Corpuscular Volume 89.7 fl (80-100); Mean Platelet Volume 10.7 fl (7.4-10.4); Monocytes Absolute Auto 1.5 K/mm3 (0.1-0.6); Monocytes Percent Auto 6.6 % (2.6-8.5); Neutrophils Absolute Auto 3.9 K/mm3 (1.3-6.7); Neutrophils Percent Auto 16.8 % (45.5-73.1); Platelet Count Result 172 k/mm3 (150-375); Red Blood Count 4.56 M/mm3 (4.6-6.20); Red Cell Distribution Width 13.6 % (11.5-14.5); White Blood Count 23.4 K/mm3 (4.5-10.0)
[2024-07-19 10:55] LABS: Atypical Lymphocytes Present; Platelet Estimate Adequate (Adequate); Schistocytes None Seen
[2024-07-19 11:36] LABS: Alanine Aminotransferase 19 U/L (6-50); Albumin Level 4.5 g/dL (3.5-5.1); Alkaline Phosphatase 79 U/L (38-126); Anion Gap 11 mmol/L (4-12); Aspartate Amino Transferase 24 U/L (17-59); Bilirubin,Total 0.3 mg/dL (0.2-1.3); Blood Urea Nitrogen 13 mg/dL (9-20); Calcium 9.5 mg/dL (8.4-10.2); Carbon Dioxide 27 mmol/L (22-30); Chloride 101 mmol/L (98-107); Estimated Glomerular Filt Rate > 60; Glucose 127 mg/dL (65-110); Potassium 4.2 mmol/L (3.4-5.0); Sodium 139 mmol/L (137-145)
== END 2024-07-19 10:31 | disposition home or self-care (01) ==
LOC: ANHLAB 10:32
PROVIDERS: PCP Internal Medicine; Visit Provider Internal Medicine Hematology & Oncology
DX: C20 Malignant neoplasm of rectum (principal)
CPT/HCPCS: 36415; 80053; 82378; 85025

== ENCOUNTER 2025-02-10 11:05 | Outpatient (CLI) | payer MEDICARE, SELFPAY ==
[2025-02-10 11:24] LABS: Basophils Absolute Auto 0.1 K/mm3 (0.0-0.1); Basophils Percent Auto 0.3 % (0.2-1.2); Eosinophils Absolute Auto 0.2 K/mm3 (0-0.3); Eosinophils Percent Auto 0.4 % (0-4.4); Hematocrit 45.4 % (42.0-52.0); Immature Granulocyte Absolute 0.07 K/mm3 (0.00-0.031); Immature Granulocyte Percent A 0.2 % (0-0.5); Lymphocytes Absolute Auto 27.52 K/mm3 (0.9-3.2); Lymphocytes Percent Auto 81.5 % (18.3-44.2); Mean Corpuscular Hemoglobin 28.8 pg (26-34); Mean Corpuscular Volume 87.1 fl (80-100); Mean Platelet Volume 10.4 fl (7.4-10.4); Monocytes Absolute Auto 1.5 K/mm3 (0.1-0.6); Monocytes Percent Auto 4.6 % (2.6-8.5); Neutrophils Absolute Auto 4.4 K/mm3 (1.3-6.7); Platelet Count Result 170 k/mm3 (150-375); Red Blood Count 5.21 M/mm3 (4.6-6.20); Red Cell Distribution Width 14.9 % (11.5-14.5); White Blood Count 33.8 K/mm3 (4.5-10.0)
[2025-02-10 11:36] LABS: Platelet Estimate Adequate (Adequate); Schistocytes None Seen
[2025-02-10 11:39] LABS: Anisocytosis 1+; Atypical Lymphocytes Present
--- OUTSIDE RECORDS SUMMARY | 2025-02-10 12:12 | XMS_ITS | Referral Summary ---
Author Organization [facility] Address [address] [place] [address] Care Team Providers Care Concrete Grinder Operator Name Role Phone Nia Dillon MD Primary Care Provider + [phone] Carmencita FinnW Unavailable [facility] Jason Burks MD Unavailable [phone] Aydin Moreno MD Unavailable [phone] Yayo Wei MD Unavailable [phone] Encounters Date Type Department Care Team Description 12/14/2024 9:09 AM CDT - 12/14/2024 11:59 PM CDT Hospital Encounter [facility] [address] [facility] [address] [place] [address] Squamous cell carcinoma of tongue (HCC) Discharge Disposition: Discharge to home or self care 12/14/2024 12:15 PM CDT [facility] Visit [facility] [address] [facility] [place] [id number] Jason Burks MD Squamous cell carcinoma of tongue (HCC) (Primary Dx); Lung nodule 11/30/2024 8:58 AM CDT - 11/30/2024 11:59 PM CDT Hospital Encounter [facility] [address] [address] Malignant neoplasm of lung, unspecified laterality, unspecified part of lung (HCC) Discharge Disposition: Discharge to home or self care 11/30/2024 9:45 AM CDT [facility] [address] [place] [id number] Ceasar Andino MD Malignant neoplasm of lung, unspecified laterality, unspecified part of lung (HCC) (Primary Dx) 11/29/2024 Telephone [facility] [address] [place] [address] Maru Duff RMA from Last 3 Months Allergies No known active allergies Medications pravastatin (PRAVACHOL) 20 mg tablet Take 1 tablet (20 mg total) by mouth nightly 02/18/2024 Active acetaminophen (TYLENOL) 325 mg tablet Take 2 tablets (650 mg total) by mouth every 4 (four) hours 05/27/2024 Active losartan-hydroC HLOROthiazide (HYZAAR) 50-12.5 mg per tablet Take 1 tablet by mouth nightly 03/24/2023 Active Active Problems Patient Care Coordination No te Formatting of this note migh t be different from the original. Referring provider: Dr. Jason Burks Mr. Sd Munoz is a 63-year-old with a lung nodule. He initially presented with complaints of an enlarging tongue lesion that was first noted in March of 2024. On 04/12/2024 the patient underwent a biopsy of the lesion and final pathology confirmed a moderately differentiated squamous cell carcinoma. On 05/07/2024 the patient underwent a PET scan which noted a markedly FDG avid lesion in the right oral tongue with a maximum SUV of 9.8. Nearby the right tongue lesion in the right tongue base and adjacent to the retromolar triangle, there was a focus of markedly increased FDG avidity with a maximum SUV of 8.1. In the region of the floor of the mouth there is a moderately FDG avid focus with no definitive CT correlate. There are minimally FDG avid morphologically normal appearing bilateral cervical 1b lymph nodes. In the left elbow there is a markedly FDG avid focus with a maximum SUV of 12.7. There is a mildly FDG avid left upper lobe part solid pulmonary nodule measuring 1.2 cm. Additionally there is a small left lower lobe subcentimeter pulmonary nodule too small to characterize on PET. On 05/07/2024 the patient underwent a CT of the neck which showed an enhancing lesion along the right lateral aspect of the base of the tongue corresponding with increased FDG uptake on PET scan., suspicious for malignancy. There was a spiculated nodule in the left upper lobe measuring 1.2 cm. There is periodontal disease. Patient has a history of rectal adenocarcinoma 2019 status post chemo and radiation completed in April2018 he went on to undergo a low anterior resection in May of 2019 followed by additional chemotherapy completed in October 2019. He also has a history of CLL and is on observation. Patient is getting scheduled for pulmonary function testing prior to his appointment today. Patient is a former smoker. Patient presents today for further surgical evaluation. Problem Noted Date Diagnosed Date Anemia 11/05/2024 Assessment & Plan (11/05/2024 8:00 AM DIALER): - mild - expected post op - R/T chronic disease Lung nodule 11/04/2024 Assessment & Plan (11/05/2024 7:59 AM DIALER): S/P Robotic assisted left upper lobe segmentectomy - small air leak noted on rounds this AM again - keep chest tube today - adjust pain meds - he can MTF - ADAT HTN (hypertension) 11/04/2024 Assessment & Plan (11/04/2024 1:40 PM DIALER): - monitor - restart home meds when able COPD (chronic obstructive pulmonary disease) Assessment & Plan (11/04/2024 1:42 PM DIALER): - on RA - monitor Leukocytosis 11/04/2024 Assessment & Plan (11/04/2024 1:42 PM DIALER): - CLL on observation Centrilobular emphysema 05/18/2024 Tongue cancer 05/07/2024 Overview (06/09/2024): DIAGNOSIS: T2 right tongue cancer PROCEDURE PERFORMED: (Eriberto 05/25/24) Right partial glossectomy Right neck dissection Tongue flap reconstruction of glossectomy defect 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 Immunizations Immunization Administration Dates Next Due Influenza, Trivalent, Preservative Free, Intramu scular 11/06/2024 Social History Tobacco Use Types Packs/Day Years Used Date Smoking Tobacco: Former Cigarettes 1 41 S tarted: 1972 Smokeless Tobacco: Never Tobacco Cessation:Counseling Given: Not Answered Comments:Quit over 10 years ago [facility] Utilities Answer Date Recorded In the past 12 months has th e electric, gas, oil, or water company threatened to shut off services in your home? No 04/22/2024 Social Connection and Isolat ion Panel [NHANES] Answer Date Recorded In a typical week, how many times do you talk on the phone with family, friends, or neighbors? More than three times a week 04/22/2024 How often do you get togethe r with friends or relatives? More than three times a week 04/22/2024 How often do you attend chur ch or evangelical services? Never 04/22/2024 Do you belong to any clubs o r organizations such as jehovah's witness groups, unions, fraternal or athletic groups, or school groups? No 04/22/2024 How often do you attend meet ings of the clubs or organizations you belong to? Never 04/22/2024 Are you , , di vorced, , never , or living with a partner? Never 04/22/2024 AUDIT-C Answer Date Recorded Q1: How often do you have a drink containing alc ohol? Monthly or less 11/03/2024 Q2: How many drinks containi ng alcohol do you have on a typical day when you are drinking? 1 or 2 11/03/2024 Q3: How often do you have si x or more drinks on one occasion? Never 11/03/2024 Overall Financial Resource Strain (CARDIA) Answe r Date Recorded How hard is it for you to pa y for the very basics like food, housing, medical care, and heating? Not hard at all 04/22/2024 PHQ-2 Answer Date Recorded PHQ-2 Total Score 0 04/22/2024 Hunger Vital Sign Answer Date Recorded Within the past 12 months, y ou worried that your food would run out before you got the money to buy more. Never true 04/22/20 24 Within the past 12 months, t he food you bought just didn't last and you didn't have money to get more. Never true 04/22/2024 PRAPARE - Transportation Answer Date Re corded In the past 12 months, has l ack of transportation kept you from medical appointments or from getting medications? No 04/08 In the past 12 months, has l ack of transportation kept you from meetings, work, or from getting things needed for daily living? No 04/22/2024 Housing Stability Vital Sign Answer Preet e Recorded In the last 12 months, was t here a time when you were not able to pay the mortgage or rent on time? No 04/22/2024 In the past 12 months, how m any times have you moved where you were living? 0 04/22/2024 At any time in the past 12 m [facility], were you homeless or living in a nursing home (including now)? No 04/22/2024 Personal Safety Answer Date Recorded Have you ever been in or are you currently in a harmful physical or emotional relationship or is someone making you feel afraid or unsafe? Denies 11/03/2024 Sex and Gender Information Value Date Recorded Sex Assigned at Not on file Legal Sex Male 8:12 AM CDT Gender Identity Not on file Sexual Orientation Not on file Last Filed Vital Signs Vital Sign Reading Time Taken Comments Blood Pressure 114/71 12/14/2024 12:26 PM CDT Pulse 77 12/14/2024 12:26 PM CDT Temperature 36.6 C (97.8 F) 12/14/2024 12:26 PM CDT Respiratory Rate 16 12/14/2024 12:26 PM CDT Oxygen Saturation 97% 12/14/2024 12:26 PM CDT Inhaled Oxygen Concentration - - Weight 78.7 kg (173 lb 6.4 oz) 12/14/2024 12:26 PM CDT Height 167.6 cm (5' 6) 11/03/2024 8:10 PM DIALER Body Mass Index 27.99 11/03/2024 8:10 PM DIALER Plan of Treatment Not on file Procedures Procedure Name Priority Date/Time Associated Diagnosis Comments [facility] DNA AND RNA SOLID TUMOR Routine 12/14/2024 2:20 PM CDT Squamous cell carcinoma of tongue (HCC) Lung nodule PET/CT FDG SKULL TO THIGH Schedule Routine, Read Routine (OP Routine) 12/14/2024 10:43 AM CDT Squamous cell carcinoma of tongue (HCC) XR CHEST PA LATERAL 2 VIEWS Schedule Routine, Read Routine (OP Routine) 11/30/2024 9:11 AM CDT Malignant neoplasm of lung, unspecified laterality, unspecified part of lung (HCC) from Last 3 Months Results * [facility] DNA and RNA - Tumor Only (12/14/2024 2:20 PM CDT) [facility] Please review the PDF for results. 01/05/2025 4:47 PM CDT [facility] Comment:[facility] link Tissue specimen (specimen) 12/14/2024 2:20 PM CDT 12/16/2024 5:57 PM CDT Narrative This result has genomic variants that were not included in this document. Jason Burks MD LAB GENETIC TESTING Edited Result - Final [facility] [address] [facility] [address], [address] [place] [address] [facility] [address] [address], [address] [place] [address] * PET/CT FDG Skull to Thigh (12/14/2024 10:43 AM CDT) Anatomical Region Laterality Modality N/A Positron Emissio n Tomography (PET) 12/14/2024 11:4 2 AM CDT Impressions 12/14/2024 12:17 PM CDT 1. Postsurgical changes of right hemiglossectomy without evidence of focal or cervical alan metastatic disease. 2. Postoperative changes of interval left upper lobe wedge resection with new moderate to marked FDG uptake along the anterior aspect of the resection margin. Given that the primary tumor demonstrated much lower degree of FDG uptake and recent surgery, this is favored to represent postsurgical inflammatory changes although recurrent disease at the resection margin is possible. Attention on follow-up is recommended. Dictated by: Troy Tovar M.D. The radiology attending physician has personally reviewed this study, and had reviewed and/or edited this written report and agrees with it. Electronically signed by: Deanna Brunner M.D. Narrative 12/14/2024 12:17 PM CDT EXAMINATION: TUMOR FDG-PET/CT IMAGING DATE OF STUDY: 12/14/2024 SCANNER: RADIOPHARMACEUTICAL: 17.0 mCi F-18 Fluorodeoxyglucose (FDG) i.v. Injection site: Left antecubital HISTORY: 64-year-old man with squamous cell carcinoma of the tongue status post partial glossectomy on 05/25/2024 (T2 N0). A left upper lobe wedge resection was performed on 11/03/2024 for a pulmonary nodule which demonstrated adenocarcinoma pulmonary origin. Prior history of rectal adenocarcinoma treated with low anterior resection and FOLFOX completed 2019. The study is requested for restaging after completion of therapy. Initial treatment strategy. TECHNIQUE: The patient's fasting blood glucose level, measured by glucometer before injection of FDG, was 86 mg/dL. After intravenous administration of FDG, noncontrast CT images were obtained for attenuation correction and for fusion with emission PET images to allow for anatomical localization of PET findings. Emission PET images were then obtained. The study was interpreted on the [employer] workstation. The mean liver SUV (reported for it quality assurance analyst purposes) is 3.1. The total scanned area was skull vertex to proximal thighs. Images of the body were obtained starting 55 minutes after injection of tracer. All reported SUVs are maximum SUVs, unless otherwise specified. COMPARISON: PET scan dated 05/07/[address] dated 10/12/2024 DESCRIPTORS OF LESION FDG AVIDITY: Minimal: <= blood pool Mild: > blood pool and <= liver Moderate: > liver and <= 2x SUVmax liver Moderate to marked: >2x SUVmax liver and <= 3x SUVmax liver Marked: > 3x SUVmax liver FINDINGS: Postsurgical changes of partial glossectomy and right cervical lymph node dissection. No abnormally enlarged or FDG avid cervical lymph nodes. No elevated FDG uptake at the resection margin. There are interval postsurgical changes of left upper lobe wedge resection. There are associated linear and nodular consolidations surrounding the resection margin. At the anterior margin of the suture line there is an area of moderate to marked linear FDG uptake with SUV 8.2 and measuring approximately 1 cm in length. There are linear foci of mild FDG uptake along the left chest wall compatible with surgical port sites. Additional CT findings: Coronary and aortic calcific atherosclerosis. The right testis is located within the inguinal canal which is new from prior likely transient. Degenerative cervical spine changes. Procedure Note Deanna Brunner MD - 12/14/2024 EXAMINATION: TUMOR FDG-PET/CT IMAGING DATE OF STUDY: 12/14/2024 SCANNER: RADIOPHARMACEUTICAL: 17.0 mCi F-18 Fluorodeoxyglucose (FDG) i.v. Injection site: Left antecubital HISTORY: 64-year-old man with squamous cell carcinoma of the tongue status post partial glossectomy on 05/25/2024 (T2 N0). A left upper lobe wedge resection was performed on 11/03/2024 for a pulmonary nodule which demonstrated adenocarcinoma pulmonary origin. Prior history of rectal adenocarcinoma treated with low anterior resection and FOLFOX completed 2019. The study is requested for restaging after completion of therapy. Initial treatment strategy. TECHNIQUE: The patient's fasting blood glucose level, measured by glucometer before injection of FDG, was 86 mg/dL. After intravenous administration of FDG, noncontrast CT images were obtained for attenuation correction and for fusion with emission PET images to allow for anatomical localization of PET findings. Emission PET images were then obtained. The study was interpreted on the [employer] workstation. The mean liver SUV (reported for it quality assurance analyst purposes) is 3.1. The total scanned area was skull vertex to proximal thighs. Images of the body were obtained starting 55 minutes after injection of tracer. All reported SUVs are maximum SUVs, unless otherwise specified. COMPARISON: PET scan dated 05/07/[address] dated 10/12/2024 DESCRIPTORS OF LESION FDG AVIDITY: Minimal: <= blood pool Mild: > blood pool and <= liver Moderate: > liver and <= 2x SUVmax liver Moderate to marked: >2x SUVmax liver and <= 3x SUVmax liver Marked: > 3x SUVmax liver FINDINGS: Postsurgical changes of partial glossectomy and right cervical lymph node dissection. No abnormally enlarged or FDG avid cervical lymph nodes. No elevated FDG uptake at the resection margin. There are interval postsurgical changes of left upper lobe wedge resection. There are associated linear and nodular consolidations surrounding the resection margin. At the anterior margin of the suture line there is an area of moderate to marked linear FDG uptake with SUV 8.2 and measuring approximately 1 cm in length. There are linear foci of mild FDG uptake along the left chest wall compatible with surgical port sites. Additional CT findings: Coronary and aortic calcific atherosclerosis. The right testis is located within the inguinal canal which is new from prior likely transient. Degenerative cervical spine changes. IMPRESSION: 1. Postsurgical changes of right hemiglossectomy without evidence of focal or cervical alan metastatic disease. 2. Postoperative changes of interval left upper lobe wedge resection with new moderate to marked FDG uptake along the anterior aspect of the resection margin. Given that the primary tumor demonstrated much lower degree of FDG uptake and recent surgery, this is favored to represent postsurgical inflammatory changes although recurrent disease at the resection margin is possible. Attention on follow-up is recommended. Dictated by: Troy Tovar M.D. The radiology attending physician has personally reviewed this study, and had reviewed and/or edited this written report and agrees with it. Electronically signed by: Deanna Brunner M.D. Jason Burks MD IMG PET PROCEDURES Final Re sult * X-ray chest 2 views (11/30/2024 9:11 AM CDT) Anatomical Region Laterality Modality Body, Chest N/A Computed Radiogr aphy 11/30/2024 9:17 AM CDT Impressions 11/30/2024 9:17 AM CDT Comparison is made to prior chest radiograph 11/06/2024 Surgical changes noted compatible with left upper lobe wedge resection. Lungs are clear. Heart size is normal Electronically signed by: Zaid Edmond M.D. Narrative 11/30/2024 9:17 AM CDT EXAMINATION: 2 view chest radiograph Procedure Note Zaid Edmond MD - 11/30/2024 EXAMINATION: 2 view chest radiograph IMPRESSION: Comparison is made to prior chest radiograph 11/06/2024 Surgical changes noted compatible with left upper lobe wedge resection. Lungs are clear. Heart size is normal Electronically signed by: Zaid Edmond M.D. Milagrosdorothy Duff FINANCE EXECUTIVE IMG XR PROCEDURES Reina l Result from Last 3 Months Insurance [facility] Address: [id number] [place] [address] [employer] MEDICARE ADVANTAGE [facility] Address: [address] [address] [place] [address] Advance Directives For more information, please contact: [phone] * Full Code (Latest Code Status on File) Date Activated Date Inactivated Comments 11/03/2024 5:58 PM 11/06/2024 7:20 PM * Full Code Date Activated Date Inactivated Comments 05/25/2024 9:48 PM 05/28/2024 3:46 PM Care Teams Concrete Grinder Operator Relationship Specialty Start Date End Date Nia Dillon MD [address] [place] [address] PCP - General Internal Medicine 04/14/24 Carmencita Finn LCSW Program Director Group Work 04/19/24 Jason Burks MD [address] [facility] [address] [place] [address] Medical Oncologist/Job Superintendent Medical Oncology 04/20/24 Aydin Moreno MD [address] [facility] [address] [place] [address] Radiation Oncologist Radiation Oncology 04/20/24 Yayo Wei MD [address] [facility] DEPT OTOLARYNGOLOGY, [address] [address] Consulting Physician Otolaryngology 04/20/24
--- OUTSIDE RECORDS SUMMARY | 2025-02-10 12:12 | XMS_ITS ---
Author Organization [facility] Address [address] [place] [address] Care Team Providers Care Vba Programmer Name Role Phone Nia Dillon MD Primary Care Provider + [phone] Carmencita Finn LCSW Unavailable [facility] Jason Burks MD Unavailable [phone] Aydin Moreno MD Unavailable [phone] Yayo Wei MD Unavailable [phone] Active Problems Patient Care Coordination No te [...] 11/05/2024 Assessment & Plan (11/05/2024 8:00 AM FILAMENT WOUND PARTS FABRICATOR): - mild - expected post op - R/T chronic disease Lung nodule 11/04/2024 Assessment & Plan (11/05/2024 7:59 AM FILAMENT WOUND PARTS FABRICATOR): S/P Robotic assisted left upper lobe segmentectomy - small air leak noted on rounds this AM again - keep chest tube today - adjust pain meds - he can MTF - ADAT HTN (hypertension) 11/04/2024 Assessment & Plan (11/04/2024 1:40 PM FILAMENT WOUND PARTS FABRICATOR): - monitor - restart home meds when able COPD (chronic obstructive pulmonary disease) Assessment & Plan (11/04/2024 1:42 PM FILAMENT WOUND PARTS FABRICATOR): - on RA - monitor Leukocytosis 11/04/2024 Assessment & Plan (11/04/2024 1:42 PM FILAMENT WOUND PARTS FABRICATOR): - CLL on observation Centrilobular emphysema 05/18/2024 Tongue cancer 05/07/2024 Overview (06/09/2024): DIAGNOSIS: T2 right tongue cancer PROCEDURE PERFORMED: (Eriberto 05/25/24) Right partial glossectomy Right neck dissection Tongue flap reconstruction of glossectomy defect 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 Current Treatment and Therapy Plans No current plan information found. Past Treatment and Therapy Plans No past plan information found. Lifetime Dose Tracking * Chemical Lifetime Dose Automatic Entry Manual Entr y Fluoro Time 0.662 minutes 0.662 minutes 0 minutes Air kerma at the reference point (Ka,r) 3.74 mGy 3 .74 mGy 0 mGy DLP 1,801 mGycm 1,801 mGycm 0 mGycm
--- OUTSIDE RECORDS SUMMARY | 2025-02-10 12:12 | XMS_ITS | Encounter Summary ---
Author Organization [facility] Address [address] [place] [address] Care Team Providers Care Backup Operator Name Role Phone Nia Dillon MD Primary Care Provider + Encounter Details Date Type Department Care Team (Late st Contact Info) Description 02/17/2019 Chart Note [facility] Radiation Therapy [address] [place] [address] [place] [address] [place] [address] Social History Tobacco Use Types Packs/Day Years Used Date Smoking Tobacco: Former Cigarettes 1 40 0 02/17/1974 - 02/17/2014 Smokeless Tobacco: Never Alcohol Use Standard Drinks/Week Comments Yes 0 (1 standard drink = 0.6 oz pur e alcohol) Sex and Gender Information Value Date Recorded Sex Assigned at Not on file Legal Sex Male 10:52 AM CDT Gender Identity Not on file Sexual Orientation Not on file documented as of this encounter Functional Status documented as of this encounter Plan of Treatment Upcoming Encounters Date Type Department Care Team (Late st Contact Info) Description 02/17/2025 10:15 AM CDT Office Visit [facility] Oncology and Hematology - [place] [address] [place] [address] Hudson Kuo MD [address] [place] [address] documented as of this encounter Visit Diagnoses Not on filedocumented in this encounter Care Teams Backup Operator Relationship Specialty Start Date End Date Nia Dillon MD [address] [place] [address] PCP - General Internal Medicine 02/17/19 [facility] Parts RunnerJewelry Consultant 04/04/20 documented as of this encounter
--- OUTSIDE RECORDS SUMMARY | 2025-02-10 12:12 | XMS_ITS | Clinical Summary ---
Author Organization [facility] Address [address] [place] [address] Care Team Providers Care Rough Rice Tender Name Role Phone Nia Dillon MD Primary Care Provider + [phone] Carmencita Finn LCSW Unavailable Unavaila Jason Justin MD Unavailable [phone] Aydin Moreno MD Unavailable [phone] Yayo Wei MD Unavailable [phone] Allergies No known active allergies Medications pravastatin [...] 11/05/2024 Assessment & Plan (11/05/2024 8:00 AM TOOLMAKER): - mild - expected post op - R/T chronic disease Lung nodule 11/04/2024 Assessment & Plan (11/05/2024 7:59 AM TOOLMAKER): S/P Robotic assisted left upper lobe segmentectomy - small air leak noted on rounds this AM again - keep chest tube today - adjust pain meds - he can MTF - ADAT HTN (hypertension) 11/04/2024 Assessment & Plan (11/04/2024 1:40 PM TOOLMAKER): - monitor - restart home meds when able COPD (chronic obstructive pulmonary disease) Assessment & Plan (11/04/2024 1:42 PM TOOLMAKER): - on RA - monitor Leukocytosis 11/04/2024 Assessment & Plan (11/04/2024 1:42 PM TOOLMAKER): - CLL on observation Centrilobular emphysema 05/18/2024 Tongue cancer 05/07/2024 Overview (06/09/2024): DIAGNOSIS: T2 right tongue cancer PROCEDURE PERFORMED: (Eriberto 05/25/24) Right partial glossectomy Right neck dissection Tongue flap reconstruction of glossectomy defect 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 Encounters Date Type Department Care Team Description 12/14/2024 12:15 PM CDT Office Visit [facility] Oncology [address] [facility] [address] [place] [address] Jason Burks MD Squamous cell carcinoma of tongue (HCC) (Primary Dx); Lung nodule 12/14/2024 9:09 AM CDT - 12/14/2024 11:59 PM CDT Hospital Encounter [facility] Imaging [address] [facility] Medical Office Building [address] [place] [address] Squamous cell carcinoma of tongue (HCC) Discharge Disposition: Discharge to home or self care 11/30/2024 9:45 AM CDT Office Visit [facility] Surgery [address] [facility] [address] [place] [address] Ceasar Andino MD Malignant neoplasm of lung, unspecified laterality, unspecified part of lung (HCC) (Primary Dx) 11/30/2024 8:58 AM CDT - 11/30/2024 11:59 PM CDT Hospital Encounter [facility] Imaging [address] [place] [address] Malignant neoplasm of lung, unspecified laterality, unspecified part of lung (HCC) Discharge Disposition: Discharge to home or self care 11/29/2024 Telephone [facility] Surgery [address] [facility] [address] [place] [address] Maru Duff RMA from Last 3 Months Immunizations Immunization Administration Dates Next Due Influenza, Trivalent, Preservative Free, Intramu scular 11/06/2024 Surgical History Surgery Date Site/Laterality Comments COLON SURGERY HERNIA REPAIR NECK DISSECTION 05/25/2024 Right glossectomy Medical History Medical History Date Comments Cancer (HCC) Hypertension Family History Medical History Relation Name Comments Other Father open heart surgery Father heart problems Mother pace maker Mother Multiple sclerosis Sister Anesthesia problems Neg Hx Relation Name Status Comments Father Mother Sister Social History Tobacco Use Types Packs/Day Years Used Date Smoking Tobacco: Former Cigarettes 1 41 S tarted: 1972 Smokeless Tobacco: Never Tobacco Cessation:Counseling Given: Not Answered Comments:Quit over 10 years ago [facility] Utilities Answer Date Recorded In the past 12 months has for[MD] electric, gas, oil, or water company threatened [...] often do you attend chur ch or rastafari services? Never 04/22/2024 Do you belong to any clubs o r organizations such as taoism groups, unions, fraternal or athletic groups, or [...] any time in the past 12 m [facility], were you homeless or living in a retirement (including now)? No 04/22/2024 Personal Safety Answer [...] on file Sexual Orientation Not on file Obstetrics History Last Filed Vital Signs Vital Sign Reading [...] 167.6 cm (5' 6) 11/03/2024 8:10 PM TOOLMAKER Body Mass Index 27.99 11/03/2024 8:10 PM TOOLMAKER Plan of Treatment Health Maintenance Due Date Last Done Comments Colon Cancer Screening-Colonoscopy 1960 Hepatitis C Screening 1960 Prostate Cancer Screening-PSA 1960 Hepatitis B Screening 1978 Regular Well Visit/Exam 18-64 1978 Covid-19 Vaccine (3 - Pfizer risk series) 05/03/2021 04/05/2021, 03/15/2021 Depression Screening 04/22/2025 04/22/2024 Pneumococcal vaccine <65 (3 of 3 - PPSV23, PCV20 or PCV21) 10/18/2025 10/18/2020, 09/07/2018 DTaP/Tdap/Td Vaccine (2 - Td or Tdap) 09/07/2028 Zoster Vaccine Completed 02/26/2019, 12/15/2018 Influenza Vaccine Completed 11/06/2024, 08/26/2018 Procedures Procedure Name Priority Date/Time Associated Diagnosis [...] PDF for results. 01/05/2025 4:47 PM CDT [facility] Comment:[facility] Tissue specimen (specimen) 12/14/2024 2:20 PM CDT 12/16/2024 5:57 PM CDT Narrative This result has genomic variants that were not included in this document. us Jason Burks MD LAB GENETIC TESTING Edited Result - Final [facility] [address], [address] [place] [address], [facility] [phone] [facility] [address], [address] [place] [address] * PET/CT FDG Skull to Thigh (12/14/2024 [...] obtained. The study was interpreted on the [employer] workstation. The mean liver SUV (reported for quality inspector purposes) is 3.1. The total scanned area [...] obtained. The study was interpreted on the [employer] workstation. The mean liver SUV (reported for quality inspector purposes) is 3.1. The total scanned area [...] it. Electronically signed by: Deanna Brunner M.D. us Jason Burks MD IMG PET PROCEDURES Final [...] normal Electronically signed by: Zaid Edmond M.D. us Milagros Duff NP IMG XR PROCEDURES Reina l Result from Last 3 Months Insurance [facility] MEDICARE ADVANTAGE [facility] MEDICARE ADVANTAGE Advance Directives For more information, please contact: [phone] * Full Code (Latest Code Status on File) Date Activated Date Inactivated Comments 11/03/2024 5:58 PM 11/06/2024 7:20 PM * Full Code Date Activated Date Inactivated Comments 05/25/2024 9:48 PM 05/28/2024 3:46 PM Care Teams Rough Rice Tender Relationship Specialty Start Date End Date Nia Dillon MD [address] [place] [address] PCP - General Internal Medicine 04/14/24 Carmencita Finn LCSW Focused Factory Manager 04/19/24 Jason Burks MD [address] [place] [address] Medical Oncologist/Home Health Assistant Medical Oncology 04/20/24 Aydin Moreno MD [address] [place] [address] Radiation Oncologist Radiation Oncology 04/20/24 Yayo Wei MD [address] DEPT OTOLARYNGOLOGY, [address] [address] Consulting Physician Otolaryngology 04/20/24
--- OUTSIDE RECORDS SUMMARY | 2025-02-10 12:12 | XMS_ITS | Clinical Summary ---
Author Organization [facility] Address [address] [place] [address] Care Team Providers Care Lawn And Garden Technician Name Role Phone Unavailable Primary Care Provider Unavailabl e Source Comments [facility],non-owned Affiliates and Associated Physician Practices is amultiple site organization consisting of ambulatory clinics and hospital sitesin [place], [place], [place] and [place]. This disclosure is being madepursuant to the Care Everywhere program and may not contain all information available regarding this patient. Last updated 18.[facility] Allergies No known active allergies Medications * Be aware that medications may not be up to date on this document. Alwaysverify current medications with the patient. No known medications Family History Medical History Relation Name Comments Multiple Sclerosis Brother CVA Father Other Father Hypertension Sister Relation Name Status Comments Brother Father x5 Bipass Mother pacemaker Sister Social History Tobacco Use Types Packs/Day Years Used Date Smoking Tobacco: Former Cigarettes 1 40 0 09/08/1974 - 09/08/2014 Smokeless Tobacco: Never Comments:reports he has not smoked for 2.5 years - 02/22 Alcohol Use Standard Drinks/Week Comments Yes 12 (1 standard drink = 0.6 oz pu re alcohol) Sex and Gender Information Value Date Recorded Sex Assigned at Not on file Legal Sex Male 2:25 AM CDT Gender Identity Not on file Sexual Orientation Not on file Last Filed Vital Signs Vital Sign Reading Time Taken Comments Blood Pressure 134/72 03/02/2017 3:57 AM CDT Pulse 67 03/02/2017 3:57 AM CDT Temperature 36.6 C (97.9 F) 03/02/2017 3:57 AM CDT Respiratory Rate 14 03/02/2017 3:57 AM CDT Oxygen Saturation 99% 03/02/2017 3:57 AM CDT Inhaled Oxygen Concentration - - Weight 77.1 kg (170 lb) 03/02/2017 3:57 AM CDT Height 167.6 cm (5' 6) 03/02/2017 3:57 AM CDT Body Mass Index 27.44 03/02/2017 3:57 AM CDT Plan of Treatment Health Maintenance Due Date Last Done Comments COLOGUARD (AGES 45-75) - COL ON CA SCREENING 1960 COLON MONITORING 1960 COLONOSCOPY - COLON CA SCREENING 1960 CT COLONOGRAPHY - COLON CA SCREENING 1960 Colorectal Cancer Screening 1960 FIT - COLON CA SCREENING 1960 FLEX SIG - COLON CA SCREENING 1960 LIPID TESTING 1960 HIV SCREENING 1975 HEPATITIS C SCREENING 06/14/1978 DTAP/TDAP/TD VACCINES (1 - Tdap) 1979 PNEUMOCOCCAL VACCINE 50+ (1 of 1 - PCV) 2010 ZOSTER VACCINE (1 of 2) 2010 COVID-19 VACCINE (1 - 2023-2 5 season) 2024 DEPRESSION SCREENING 09/08/2024 INFLUENZA VACCINE (Season Ended) 2025 Respiratory Syncytial Virus (RSV) Vaccine Pt: or over 60 yrs (1 - 1-dose 75+ series) 2035 HEPATITIS B VACCINE Aged Out No longe r eligible based on patient's age to complete this topic HIB VACCINE Aged Out No longer eligi ble based on patient's age to complete this topic HPV VACCINE Aged Out No longer eligi ble based on patient's age to complete this topic MENINGOCOCCAL (Group B) VACC INE SHARED DECISION-MAKING Aged Out No longer eligibl e based on patient's age to complete this topic MENINGOCOCCAL GROUPS A/C/Y/W VACCINE Aged Out No longer eligible b ased on patient's age to complete this topic [place] [address] [place] [id number] UHC MANAGED MEDICARE ADV
--- OUTSIDE RECORDS SUMMARY | 2025-02-10 12:12 | XMS_ITS | Encounter Summary ---
Author Organization [facility] Address [address] [place] [address] Care Team Providers Care Early Childhood Education Coordinator Name Role Phone Nia Dillon MD Primary Care Provider + [phone] Rosina Wei RN Unavailable UnavailCarmencita Ferrari LCSW Unavailable Unavaila Jason Justin MD Unavailable [phone] Aydin Moreno MD Unavailable [phone] Yayo Wei MD Unavailable [phone] Encounter Details Date Type Department Care Team (Late st Contact Info) Description 06/30/2024 Documentation [facility] Nutrition Counseling [address] [place] [address] Social History Tobacco Use Types Packs/Day Years Used Date Smoking Tobacco: Former Cigarettes 1 41 S tarted: 1973 Smokeless Tobacco: Never Comments:Quit over 10 years ago [facility] Utilities Answer Date Recorded In the past 12 months has [employer] electric, gas, oil, or water company threatened [...] week 04/22/2024 How often do you attend [facility] or [facility] services? Never 04/22/2024 Do you belong to any clubs o r organizations such as adventism groups, unions, fraternal or athletic groups, or school groups? No 04/22/2024 How often do you attend meet ings of the clubs or organizations you belong to? Never 04/22/2024 Are you , , di vorced, , never , or living with a partner? Never 04/22/2024 AUDIT-C Answer Date Recorded Q1: How often do you have a drink containing alc ohol? 2-4 times a month 05/25/2024 Q2: How many drinks containi ng alcohol do you have on a typical day when you are drinking? 1 or 2 05/25/2024 Q3: How often do you have si x or more drinks on one occasion? Never 05/25/2024 Overall Financial Resource Strain (CARDIA) Answe r [...] any time in the past 12 m [facility], were you homeless or living in a snf (including now)? No 04/22/2024 Personal Safety Answer Date Recorded Have you ever been in or are you currently in a harmful physical or emotional relationship or is someone making you feel afraid or unsafe? Denies 05/25/2024 Sex and Gender Information Value Date Recorded Sex Assigned at Not on file Legal Sex Male 8:12 AM CDT Gender Identity Not on file Sexual Orientation Not on file documented as of this encounter Plan of Treatment Not on file documented as of this encounter Visit Diagnoses Not on filedocumented in this encounter Care Teams Early Childhood Education Coordinator Relationship Specialty Start Date End Date Nia Dillon MD [address] [place] [address] PCP - General Internal Medicine 04/14/24 Rosina Wei, RN Nurse Navigator 04/16/24 10/19/24 Carmencita Finn LCSW Chief Financial Officer 04/19/24 Jason Burks MD [address] [place] [address] Medical Oncologist/Order Entry Specialist Medical Oncology 04/20/24 Aydin Moreno MD [address] [facility] [address] [place] [address] Radiation Oncologist Radiation Oncology 04/20/24 Yayo Wei MD [address] [facility] DEPT OTOLARYNGOLOGY, [address] [address] Consulting Physician Otolaryngology 04/20/24 documented as of this encounter
--- OUTSIDE RECORDS SUMMARY | 2025-02-10 12:12 | XMS_ITS | Clinical Summary ---
Author Organization [facility] Address [address] [place] [address] Care Team Providers Care Wool Scourer Name Role Phone Nia Dillon MD Primary Care Provider + Allergies No known active allergies Medications losartan-hydroCH LOROthiazide (HYZAAR) 50-12.5 mg tablet Take 1 Tablet by mouth daily. 03/30/2024 Active pravastatin (PRAVACHOL) 20 mg tablet 02/18/2024 Active nystatin (MYCOSTATIN) 100,000 unit/mL suspension 04/06/2024 Active fluconazole (DIFLUCAN) 100 mg tablet 04/06/2024 Active Active Problems Problem Noted Date Diagnosed Date COPD (chronic obstructive pulmonary disease) Rectal cancer 05/19/2019 Encounters Date Type Department Care Team Description 01/26/2025 External Device Data STL ABSTRACTION Provider, Abstract 01/25/2025 External Device Data STL ABSTRACTION Provider, Abstract 12/28/2024 External Device Data STL ABSTRACTION Provider, Abstract 12/07/2024 External Device Data STL ABSTRACTION Provider, Abstract 11/24/2024 External Device Data STL ABSTRACTION Provider, Abstract 11/13/2024 External Device Data STL ABSTRACTION Provider, Abstract 11/12/2024 External Device Data STL ABSTRACTION Provider, Abstract 11/10/2024 External Device Data STL ABSTRACTION Provider, Abstract from Last 3 Months Family History Medical History Relation Name Comments Multiple Sclerosis Brother Heart Disease Father Heart Surgery Father Heart Disease Mother Pacemaker Mother Relation Name Status Comments Brother Alive Father Alive Mother Alive Sister 1 Alive Sister 2 Alive Sister 3 Alive Social History Tobacco Use Types Packs/Day Years Used Date Smoking Tobacco: Former Cigarettes 1 40 0 02/17/1974 - 02/17/2014 Smokeless Tobacco: Never Tobacco Cessation:Counseling Given: Not Answered Alcohol Use Standard Drinks/Week Comments Yes 0 (1 standard drink = 0.6 oz pur e alcohol) Sex and Gender Information Value Date Recorded Sex Assigned at Not on file Legal Sex Male 10:52 AM CDT Gender Identity Not on file Sexual Orientation Not on file Last Filed Vital Signs Vital Sign Reading Time Taken Comments Blood Pressure 122/66 07/26/2024 10:37 AM MANAGER SERVICE DESK Pulse 76 07/26/2024 10:37 AM MANAGER SERVICE DESK Temperature 36.4 C (97.5 F) 07/26/2024 10:37 AM MANAGER SERVICE DESK Respiratory Rate 18 07/26/2024 10:37 AM MANAGER SERVICE DESK Oxygen Saturation 96% 07/26/2024 10:37 AM MANAGER SERVICE DESK Inhaled Oxygen Concentration - - Weight 74.8 kg (165 lb) 07/26/2024 10:37 AM MANAGER SERVICE DESK Height 167.6 cm (5' 6) 03/20/2023 11:33 AM CDT Body Mass Index 26.63 03/20/2023 11:33 AM CDT Plan of Treatment Upcoming Encounters Date Type Department Care Team (Late st Contact Info) Description 02/17/2025 10:15 AM CDT Office Visit [facility] Oncology and Hematology - [place] [address] [facility] [address] [place] [address] Hudson Kuo MD [address] [facility] [address] [place] [address] Health Maintenance Due Date Last Done Comments Pre-Diabetes and Diabetes Screening 1960 DTAP/TDAP/TD VACCINES (1 - Tdap) 1979 Lung Cancer Screening 2010 ZOSTER VACCINE (1 of 2) 2010 RSV VACCINE (60+ or ) (1 - Risk 60-74 years 1-dose series) 2020 INFLUENZA VACCINE (#1) 2024 Insurance [facility] [place] [id number] [place] [address] Care Teams Wool Scourer Relationship Specialty Start Date End Date Nia Dillon MD [address] [place] [phone] PCP - General Internal Medicine 02/17/19 [facility] Escort Vehicle DriverSecond Shift Supervisor 04/04/20
[2025-02-10 16:50] LABS: Alanine Aminotransferase 21 U/L (6-50); Albumin Level 4.6 g/dL (3.5-5.1); Alkaline Phosphatase 92 U/L (38-126); Anion Gap 10 mmol/L (4-12); Aspartate Amino Transferase 38 U/L (17-59); Bilirubin,Total 0.6 mg/dL (0.2-1.3); Blood Urea Nitrogen 16 mg/dL (9-20); Calcium 9.7 mg/dL (8.4-10.2); Carbon Dioxide 25 mmol/L (22-30); Carcinoembryonic Antigen 3.6 ng/mL (0.0-3.0); Chloride 102 mmol/L (98-107); Estimated Glomerular Filt Rate > 60; Glucose 107 mg/dL (65-110); Potassium 4.3 mmol/L (3.4-5.0); Sodium 137 mmol/L (137-145); Total Protein 7.4 g/dL (6.3-8.2)
== END 2025-02-10 11:06 | disposition home or self-care (01) ==
LOC: ANHLAB 11:06
PROVIDERS: PCP Internal Medicine; Visit Provider Internal Medicine Hematology & Oncology
DX: C20 Malignant neoplasm of rectum (principal)
CPT/HCPCS: 36415; 80053; 82378; 85025

== ENCOUNTER 2025-07-04 13:42 | Outpatient (CLI) | payer MEDICARE, SELFPAY ==
[2025-07-04 13:56] LABS: Hematocrit 45.1 % (42.0-52.0); Hemoglobin 14.9 g/dL (14.0-18.0); Immature Granulocyte Percent A 0.2 % (0-0.5); Lymphocytes Absolute Auto 37.59 K/mm3 (0.9-3.2); Mean Corpuscular HGB Conc 33.0 g/dl (32-36); Mean Corpuscular Hemoglobin 29.6 pg (26-34); Mean Corpuscular Volume 89.5 fl (80-100); Nucleated Red Blood Cells Absolute Auto 0.000 K/mm3 (0.0-0.012); Nucleated Red Blood Cells Perc 0.0 % (0.0-0.2); Platelet Count Result 169 k/mm3 (150-375); Red Blood Count 5.04 M/mm3 (4.6-6.20); White Blood Count 44.5 K/mm3 (4.5-10.0)
[2025-07-04 14:01] LABS: Schistocytes None Seen
[2025-07-04 14:02] LABS: Anisocytosis 1+
--- OUTSIDE RECORDS SUMMARY | 2025-07-04 15:21 | XMS_ITS | Clinical Summary ---
Author Organization [facility] Address [address] [place] [address] Care Team Providers Care Steel Tier Name Role Phone Unavailable Primary Care Provider Unavailabl e Source Comments [facility],non-owned Affiliates and Associated Physician Practices is amultiple site organization consisting of ambulatory clinics and hospital sitesin [place], [place], [place] and [place]. This disclosure is being madepursuant to the Care Everywhere program and may not contain all information available regarding this patient. Last updated 18.[facility] Allergies No known active allergies Medications * [...] 2010 ZOSTER VACCINE (1 of 2) 2010 DEPRESSION SCREENING 09/08/2024 COVID-19 VACCINE (1 - 2023-2 5 season) 2025 INFLUENZA VACCINE (#1) 2025 AAA SCREENING 2025 Respiratory Syncytial Virus (RSV) Vaccine Pt: [...] patient's age to complete this topic Insurance [facility] UHC MANAGED MEDICARE ADV
--- OUTSIDE RECORDS SUMMARY | 2025-07-04 15:21 | XMS_ITS ---
Author Organization [facility] Address [address] [place] [address] Care Team Providers Care Agility Instructor Name Role Phone Nia Dillon MD Primary Care Provider + [phone] Carmencita Finn LCSW Unavailable Unavaila [facility] Jason Burks MD Unavailable [phone] Aydin Moreno MD Unavailable [phone] Yayo Wei MD Unavailable [phone] Active Problems Patient Care Coordination No te [...] 11/05/2024 Assessment & Plan (11/05/2024 8:00 AM CYLINDER BATCHER): - mild - expected post op - R/T chronic disease Lung nodule 11/04/2024 Assessment & Plan (11/05/2024 7:59 AM CYLINDER BATCHER): S/P Robotic assisted left upper lobe segmentectomy - small air leak noted on rounds this AM again - keep chest tube today - adjust pain meds - he can MTF - ADAT HTN (hypertension) 11/04/2024 Assessment & Plan (11/04/2024 1:40 PM CYLINDER BATCHER): - monitor - restart home meds when able COPD (chronic obstructive pulmonary disease) Assessment & Plan (11/04/2024 1:42 PM CYLINDER BATCHER): - on RA - monitor Leukocytosis 11/04/2024 Assessment & Plan (11/04/2024 1:42 PM CYLINDER BATCHER): - CLL on observation Centrilobular emphysema 05/18/2024 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 Current Treatment and Therapy Plans No current plan information found. Past Treatment and Therapy Plans No past plan information found. Lifetime Dose Tracking * Chemical Lifetime Dose Automatic Entry Manual Entr y Fluoro Time 0.662 minutes 0.662 minutes 0 minutes Air kerma at the reference point (Ka,r) 3.74 mGy 3 .74 mGy 0 mGy DLP 2,568 mGycm 2,568 mGycm 0 mGycm Resolved Problems Problem Noted Date Diagnosed Date Resolved Date Tongue cancer 05/07/2024 06/01/2025 Overview (06/09/2024): DIAGNOSIS: T2 right tongue cancer PROCEDURE PERFORMED: (Eriberto 05/25/24) Right partial glossectomy Right neck dissection Tongue flap reconstruction of glossectomy defect
--- OUTSIDE RECORDS SUMMARY | 2025-07-04 15:21 | XMS_ITS | Clinical Summary ---
Author [facility] Address [address] [place] [address] Care Team Providers Care Wire Products Inspector Name Role Phone Nia Dillon MD Primary [...] Encounters Date Type Department Care Team Description 06/29/2025 External Device Data STL ABSTRACTION Provider, Abstract 05/10/2025 External Device Data STL ABSTRACTION Provider, Abstract 04/13/2025 External Device Data STL ABSTRACTION Provider, Abstract 04/12/2025 External Device Data STL ABSTRACTION Provider, Abstract [...] Sign Reading Time Taken Comments Blood Pressure 165/100 02/17/2025 9:59 AM CDT Pulse 72 02/17/2025 9:56 AM CDT Temperature 36.7 C (98.1 F) 02/17/2025 9:56 AM CDT Respiratory Rate 15 02/17/2025 9:56 AM CDT Oxygen Saturation 96% 02/17/2025 9:56 AM CDT Inhaled Oxygen Concentration - - Weight 79.6 kg (175 lb 6.4 oz) 02/17/2025 9:56 A M CDT Height 167.6 cm (5' 6) 03/20/2023 11:33 AM CDT Body Mass Index 28.31 03/20/2023 11:33 AM CDT Plan of Treatment Upcoming Encounters Date Type Department Care Team (Late st Contact Info) Description 07/06/2025 10:15 AM CDT Office Visit [facility] Oncology and Hematology - [place] [address] [facility] [address] [place] [address] Hudson Kuo MD [address] [facility] [address] [place] [address] Health Maintenance Due Date Last Done Comments Pre-Diabetes and Diabetes Screening 1960 DTAP/TDAP/TD VACCINES (1 - Tdap) 1979 PNEUMOCOCCAL VACCINE 50+ YEARS (1 of 2 - PCV) 06/18/19 79 Lung Cancer Screening 2010 RSV VACCINE (60+ or ) (1 - Risk 50-74 years 1-dose series) 2010 ZOSTER VACCINE (1 of 2) 2010 Medicare Advantage ([place]) Prev entative Visit/Annual Wellness Visit 09/08/2024 INFLUENZA VACCINE (#1) 2025 11/06/2024 Abdominal Aortic Aneurysm (AAA) Screening 2025 Insurance [facility] [id number] Care Teams Wire Products Inspector Relationship Specialty Start Date End Date Nia Dillon MD [address] [place] [phone] PCP - General Internal Medicine 02/17/19 [employer] Sports Medicine TrainerOnline Program Coordinator 04/04/20
--- OUTSIDE RECORDS SUMMARY | 2025-07-04 15:21 | XMS_ITS | Clinical Summary ---
Author Organization [facility] Address [address] [place] [address] Care Team Providers Care Pipe Bending Machine Operator Name Role Phone Nia Dillon MD Primary Care Provider + [phone] Carmencita Finn LCSW Unavailable Unavaila Jason Justin MD Unavailable [phone] Aydin Moreno MD Unavailable Yayo Wei MD Unavailable Allergies No known active allergies Medications pravastatin (PRAVACHOL) 20 mg tablet Take 1 tablet (20 mg total) by mouth nightly 4 Active losartan-hydroC HLOROthiazide (HYZAAR) 50-12.5 mg per tablet Take 1 tablet by mouth nightly 3 Active acetaminophen (TYLENOL) 325 mg tablet Take 2 tablets (650 mg total) by mouth every 4 (four) hours 4 06/14/20 25 Discontinu ed(Patient Reported) Active Problems Patient Care Coordination No te [...] 11/05/2024 Assessment & Plan (11/05/2024 8:00 AM CUFF MATCHER): - mild - expected post op - R/T chronic disease Lung nodule 11/04/2024 Assessment & Plan (11/05/2024 7:59 AM CUFF MATCHER): S/P Robotic assisted left upper lobe segmentectomy - small air leak noted on rounds this AM again - keep chest tube today - adjust pain meds - he can MTF - ADAT HTN (hypertension) 11/04/2024 Assessment & Plan (11/04/2024 1:40 PM CUFF MATCHER): - monitor - restart home meds when able COPD (chronic obstructive pulmonary disease) Assessment & Plan (11/04/2024 1:42 PM CUFF MATCHER): - on RA - monitor Leukocytosis 11/04/2024 Assessment & Plan (11/04/2024 1:42 PM CUFF MATCHER): - CLL on observation Centrilobular emphysema 05/18/2024 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 Resolved Problems Problem Noted Date Diagnosed Date Resolved Date Tongue cancer 05/07/2024 06/01/2025 Overview (06/09/2024): DIAGNOSIS: T2 right tongue cancer PROCEDURE PERFORMED: (Eriberto 05/25/24) Right partial glossectomy Right neck dissection Tongue flap reconstruction of glossectomy defect Encounters Date Type Department Care Team Description 06/14/2025 11:15 AM CDT Office Visit [facility] Medicine Oncology [address] [place] [address] Jason Burks MD Squamous cell carcinoma of tongue (HCC) (Primary Dx) 06/14/2025 8:29 AM CDT - 06/14/2025 11:59 PM CDT Hospital Encounter [facility] [address] [place] [address] Squamous cell carcinoma of tongue (HCC) Discharge Disposition: Discharge to home or self care from Last 3 Months Immunizations Immunization Administration [...] [address] S tarted: 1973 Smokeless Tobacco: Never Tobacco Cessation:Counseling Given: Not Answered Comments:Quit over [address] [facility] Utilities Answer Date Recorded In the past 12 months has [employer], gas, oil, or water [employer] threatened to shut off services in your home? No 04/22/2024 Social Connection and Isolation Panel Answer Date Recorded In a typical week, how many times do you talk on the phone with family, friends, or neighbors? More than three times a week 04/22/2024 How often do you get togethe r with friends or relatives? More than three times a week 04/22/2024 How often do you attend chur ch or jehovah's witness services? Never 04/22/2024 Do you belong to any clubs o r organizations such as pentecostalism groups, unions, fraternal or athletic groups, or [...] any time in the past [address] [facility], were you homeless or living in [...] Sign Reading Time Taken Comments Blood Pressure 137/86 06/14/2025 10:44 AM CDT Pulse 68 06/14/2025 10:44 AM CDT Temperature 36.6 C (97.8 F) 06/14/2025 10:44 AM CDT Respiratory Rate 16 06/14/2025 10:4 4 AM CDT Oxygen Saturation 97% 06/14/2025 10: 44 AM CDT Inhaled Oxygen Concentration - - Weight 80.6 kg (177 lb 11.1 oz) 025 10:44 AM CDT Height 167.6 cm (5' 6) 11/03/2024 8:10 PM CUFF MATCHER Body Mass Index 28.68 11/03/2024 8:10 PM CUFF MATCHER Plan of Treatment Health Maintenance Due Date Last Done Comments Colon Cancer Screening-Colonoscopy 1960 Hepatitis C Screening 1960 Prostate Cancer Screening-PSA 1960 Hepatitis B Screening 1978 Depression Screening 04/22/2025 04/22/2024 Covid-19 Vaccine ( - season) 2025, 03/15/2021 Influenza Vaccine (#1) 2025 11/06/2024, 2017 Abdominal Aortic Aneurysm (A AA) Screen 2025 12/13/2020, 12/21/2019, 05/12/2019 Well Visit 65+ 2025 Pneumococcal vaccine 65+ (3 of 3 - PCV20 or PCV21) 10/18/2025 10/18/2020, 09/07/2018 Fall Risk Assessment 11/06/2025 11/06/2024, 04/29/20 24 DTaP/Tdap/Td Vaccine (2 - Td or Tdap) 09/07/2028 Zoster Vaccine Completed 02/26/2019, 12/15/2018 Procedures Procedure Name Priority Date/Time Associated Diagnosis Comments POC ISTAT Routine 06/14/2025 8:[address] CHEST W CONTRAST Schedule Routine, Read Routine (OP Routine) 06/14/2025 8:35 AM CDT Squamous cell carcinoma of tongue (HCC) CT SOFT TISSUE NECK W CONTRAST Schedule Routine, Read Routine (OP Routine) 06/14/2025 8:35 AM CDT Squamous cell carcinoma of tongue (HCC) from Last 3 Months Results * POC ISTAT (06/14/2025 8:36 AM CDT) Creatinine, POC, bld 1.2 0.6 - 1.3 mg/dL POC Device Number [id number] [facility] Blood 06/14/2025 8:36 AM CDT 06/14/2025 8:36 AM CDT us Addis Mckinnon NP LAB BLOOD ORDERABLES Final Result Performing Organization Address City/State/[facility] Co ri Phone Number [facility] [phone] [facility] Department [place] [address] * CT Chest W Contrast (06/14/2025 8:35 AM CDT) Anatomical Region Laterality Modality Body N/A Computed Tomogra phy 06/14/2025 8:53 AM CDT Impressions 06/14/2025 8:53 AM CDT No evidence of metastatic or recurrent disease to the chest. Electronically signed by: Zaid Edmond M.D. Narrative 06/14/2025 8:53 AM CDT EXAMINATION: Computed tomography of the chest with intravenous contrast HISTORY: Squamous cell carcinoma of the tongue status post partial glossectomy and left upper lobe wedge resection. Patient also has a history of rectal cancer status post low anterior resection. TECHNIQUE: Transaxial computed tomographic images of the chest were obtained with intravenous contrast according to the standard protocol after the administration of 125 mL Opti-Ray 350 intravenous contrast. COMPARISON: FDG PET 12/14/2024 and computed tomography examination of the chest 10/12/2024 FINDINGS: Surgical changes noted compatible with left upper lobe wedge resection. There are no confluent pulmonary infiltrates. There are no pleural effusions. There is no supraclavicular nor mediastinal lymphadenopathy. Stable subcentimeter short axis lymph nodes noted within both axilla. Heart size is normal. Coronary artery calcifications noted. Images obtained through the upper abdomen are unremarkable. Images obtained with bone window settings demonstrate no suspicious osseous abnormality. Procedure Note Zaid Edmond MD - 06/14/2025 EXAMINATION: Computed tomography of the chest with intravenous contrast HISTORY: Squamous cell carcinoma of the tongue status post partial glossectomy and left upper lobe wedge resection. Patient also has a history of rectal cancer status post low anterior resection. TECHNIQUE: Transaxial computed tomographic images of the chest were obtained with intravenous contrast according to the standard protocol after the administration of 125 mL Opti-Ray 350 intravenous contrast. COMPARISON: FDG PET 12/14/2024 and computed tomography examination of the chest 10/12/2024 FINDINGS: Surgical changes noted compatible with left upper lobe wedge resection. There are no confluent pulmonary infiltrates. There are no pleural effusions. There is no supraclavicular nor mediastinal lymphadenopathy. Stable subcentimeter short axis lymph nodes noted within both axilla. Heart size is normal. Coronary artery calcifications noted. Images obtained through the upper abdomen are unremarkable. Images obtained with bone window settings demonstrate no suspicious osseous abnormality. IMPRESSION: No evidence of metastatic or recurrent disease to the chest. Electronically signed by: Zaid Edmond M.D. Addis Mckinnon NP IMG CT PROCEDURES Fin al Result * CT Neck Soft Tissue W Contrast (06/14/2025 8:35 AM CDT) Anatomical Region Laterality Modality Head and Neck N/A Computed Tomogra phy 06/14/2025 8:57 AM CDT Impressions 06/14/2025 9:37 AM CDT Stable posttreatment changes without evidence of disease recurrence or cervical lymphadenopathy. The previously mentioned soft tissue nodule within the right sublingual space is less prominent on today's examination and may represent a sublingual gland or lymph node. Dictated by: Hudson Wright MD The radiology attending physician has personally reviewed this study, and had reviewed and/or edited this written report and agrees with it. Electronically signed by: Tan Glez M.D. Narrative 06/14/2025 9:37 AM CDT EXAMINATION: CT of the neck with contrast HISTORY: Right tongue squamous cell carcinoma status post partial glossectomy 05/25/2024 TECHNIQUE: CT of the neck was performed according to the standard protocol with intravenous contrast. Contrast information: 125 mL Optiray-350 IV COMPARISON: 10/12/2024 FINDINGS: Changes of right partial glossectomy and submandibular gland resection with lymph node dissection. There is an unchanged mildly prominent soft tissue nodule within the right sublingual space (series 2 image 128, series 6 image 85) which may represent a sublingual gland or lymph node. No evidence of new enhancing lesion within the oropharynx or new cervical lymphadenopathy. There is mild fascial thickening involving the right submandibular fossa likely related to posttreatment changes. The muscles of the neck are normal. Mild carotid calcifications without significant stenosis. The visualized airway is widely patent. The base of the skull and the temporal bones are normal. Limited views of the brain including the cerebellum and brainstem are normal. The limited view of the [place] is unremarkable. The visualized portions of the orbits are normal. Multilevel cervical spondylosis with stepwise anterolisthesis from C2 to C5 and additional disc height loss and disc osteophyte complexes at C5-C7 resulting in mild to moderate canal stenosis. Changes of left upper lobe wedge resection within the visualized lung apices. Debris is noted within the upper trachea. Additional chest findings are detailed on same-day dedicated CT. Please see that report. Procedure Note Tan Glez MD - 06/14/2025 EXAMINATION: CT of the neck with contrast HISTORY: Right tongue squamous cell carcinoma status post partial glossectomy 05/25/2024 TECHNIQUE: CT of the neck was performed according to the standard protocol with intravenous contrast. Contrast information: 125 mL Optiray-350 IV COMPARISON: 10/12/2024 FINDINGS: Changes of right partial glossectomy and submandibular gland resection with lymph node dissection. There is an unchanged mildly prominent soft tissue nodule within the right sublingual space (series 2 image 128, series 6 image 85) which may represent a sublingual gland or lymph node. No evidence of new enhancing lesion within the oropharynx or new cervical lymphadenopathy. There is mild fascial thickening involving the right submandibular fossa likely related to posttreatment changes. The muscles of the neck are normal. Mild carotid calcifications without significant stenosis. The visualized airway is widely patent. The base of the skull and the temporal bones are normal. Limited views of the brain including the cerebellum and brainstem are normal. The limited view of the [place] is unremarkable. The visualized portions of the orbits are normal. Multilevel cervical spondylosis with stepwise anterolisthesis from C2 to C5 and additional disc height loss and disc osteophyte complexes at C5-C7 resulting in mild to moderate canal stenosis. Changes of left upper lobe wedge resection within the visualized lung apices. Debris is noted within the upper trachea. Additional chest findings are detailed on same-day dedicated CT. Please see that report. IMPRESSION: Stable posttreatment changes without evidence of disease recurrence or cervical lymphadenopathy. The previously mentioned soft tissue nodule within the right sublingual space is less prominent on today's examination and may represent a sublingual gland or lymph node. Dictated by: Hudson Wright MD The radiology attending physician has personally reviewed this study, and had reviewed and/or edited this written report and agrees with it. Electronically signed by: Tan Glez M.D. Addis Mckinnon NP IMG CT PROCEDURES Fin al Result from Last 3 Months Insurance [employer] MEDICARE ADVANTAGE [facility] MEDICARE ADVANTAGE Advance Directives For more information, please contact: [phone] * Full Code (Latest Code Status on File) Date Activated Date Inactivated Comments 11/03/2024 5:58 PM 11/06/2024 7:20 PM * Full Code Date Activated Date Inactivated Comments 05/25/2024 9:48 PM 05/28/2024 3:46 PM Care Teams Pipe Bending Machine Operator Relationship Specialty Start Date End Date Nia Dillon MD [address] [place] [address] PCP - General Internal Medicine 04/14/24 Carmencita Finn LCSW It Security Consultant 04/19/24 Jason Burks MD [address] [place] [address] Medical Oncologist/Coverer Medical Oncology 04/20/24 Aydin Moreno MD [address] [place] [address] Radiation Oncologist Radiation Oncology 04/20/24 Yayo Wei MD [address] DEPT OTOLARYNGOLOGY, [address] [address] Consulting Physician Otolaryngology 04/20/24
--- OUTSIDE RECORDS SUMMARY | 2025-07-04 15:21 | XMS_ITS | Encounter Summary ---
Author Organization [facility] Address [address] [place] [address] Care Team Providers Care Senior Electrical Engineer Name Role Phone Nia Dillon MD Primary Care Provider + Encounter Details Date Type Department Care Team (Late st Contact Info) Description 02/17/2019 Chart Note [facility] Radiation Therapy [address] [place] [address] [place] [address] [place] [address] Social History Tobacco Use Types [...] Description 07/06/2025 10:15 AM CDT Office Visit [facility] Oncology and Hematology - [place] [address] [place] [address] Hudson Kou MD [address] [place] [address] documented as of this encounter Visit Diagnoses Not on filedocumented in this encounter Care Teams Senior Electrical Engineer Relationship Specialty Start Date End Date Nia Dillon MD [address] [place] [phone] PCP - General Internal Medicine 02/17/19 [facility] Honeycomb DecapperYouth Care Professional 04/04/20 documented as of this encounter
--- OUTSIDE RECORDS SUMMARY | 2025-07-04 15:21 | XMS_ITS | Encounter Summary ---
Author Organization [facility] Address [address] [place] [address] Care Team Providers Care Interactive Media Marketing Director Name Role Phone Nia Dillon MD Primary Care Provider + [phone] Rosina Wei RN Unavailable UnavailCarmencita Ferrari LCSW Unavailable Unavaila Jason Justin MD Unavailable [phone] Aydin Moreno MD Unavailable [phone] Yayo Wei MD Unavailable [phone] Encounter Details Date Type Department Care Team (Late st Contact Info) Description 06/30/2024 Documentation [facility] Nutrition Counseling [address] [place] [address] Social History Tobacco Use Types Packs/Day Years Used Date Smoking Tobacco: Former Cigarettes 1 [address] tarted: 1973 Smokeless Tobacco: Never Comments:Quit over 10 years ago [facility] Utilities Answer Date Recorded In the past 12 months has [employer] electric, gas, oil, or water company threatened [...] week 04/22/2024 How often do you attend [facility] or sikh services? Never 04/22/2024 Do you belong to any clubs o r organizations such as lutheran groups, unions, fraternal or athletic groups, or [...] any time in the past 12 m [facility], were you homeless or living in a [facility] (including now)? No 04/22/2024 Personal Safety Answer [...] on filedocumented in this encounter Care Teams Interactive Media Marketing Director Relationship Specialty Start Date End Date Nia Dillon MD [address] [place] [address] PCP - General Internal Medicine 04/14/24 Rosina Wei, RN Nurse Navigator 04/16/24 10/19/24 Carmencita Finn LCSW Geochemical Manager 04/19/24 Jason Burks MD [address] [facility] [address] [place] [address] Medical Oncologist/M[address] Ct Tech Medical Oncology 04/20/24 Aydin Moreno MD [address] [facility] [address] [place] [address] Radiation Oncologist Radiation Oncology 04/20/24 Yayo Wei MD [address] [facility] DEPT OTOLARYNGOLOGY, [address] [address] Consulting Physician Otolaryngology 04/20/24 documented as of this encounter
[2025-07-04 16:37] LABS: Alanine Aminotransferase 28 U/L (6-50); Albumin Level 4.8 g/dL (3.5-5.1); Alkaline Phosphatase 102 U/L (38-126); Anion Gap 8 mmol/L (4-12); Aspartate Amino Transferase 100 U/L (17-59); Bilirubin,Total 0.6 mg/dL (0.2-1.3); Blood Urea Nitrogen 16 mg/dL (9-20); Calcium 9.7 mg/dL (8.4-10.2); Carbon Dioxide 28 mmol/L (22-30); Chloride 100 mmol/L (98-107); Estimated Glomerular Filt Rate > 60; Glucose 93 mg/dL (65-110); Potassium 4.2 mmol/L (3.4-5.0); Sodium 136 mmol/L (137-145); Total Protein 7.7 g/dL (6.3-8.2)
[2025-07-04 17:13] LABS: Carcinoembryonic Antigen 3.5 ng/mL (0.0-3.0)
== END 2025-07-04 13:43 | disposition home or self-care (01) ==
LOC: ANHLAB 13:43
PROVIDERS: PCP Internal Medicine; Visit Provider Internal Medicine Hematology & Oncology
DX: C20 Malignant neoplasm of rectum (principal)
CPT/HCPCS: 36415; 80053; 82378; 85025